=== PATIENT | female | born 1950 | race Caucasian/White ===

== ENCOUNTER → 2017-10-10 | Outpatient (CLI) | payer MEDICARE ==
[~2017-10-10] MED LIST: SULF1TAB38 PO
--- NOTE | 2017-10-10 19:54 | Diagnostic Imaging Report ---
INDICATION: Fall with left foot pain. AP, oblique, and lateral views of the left foot are obtained. There is some plantar calcaneal spurring. There is a lucency in the medial sesamoid adjacent to the first metatarsal, which may be developmental although fracture cannot be excluded. Correlate for point tenderness in this area. There is no other bony abnormality seen. IMPRESSION: Lucencies through the medial sesamoid bone adjacent to the first metatarsal, it is not clear this is developmental or a nondisplaced fracture. Correlate for point tenderness in this area. There is no acute abnormality otherwise seen. Dictated by: Dictated on workstation # [id number]
--- NOTE | 2017-10-10 19:54 | Diagnostic Imaging Report ---
INDICATION: Toe pain. AP, oblique, and lateral views of the toes are obtained. FINDINGS: There is no definite acute fracture. There is a calcification adjacent to the first interphalangeal joint which appears chronic. There is calcification adjacent to the first metatarsal head which appears chronic. There is a lucency in the medial sesamoid bone adjacent to the first metatarsal, which may be developmental although a nondisplaced fracture not excluded. IMPRESSION: Chronic finding as above. Questionable lucency in the medial sesamoid bone adjacent to the first metatarsal, this may be developmental or nondisplaced fracture, correlate for point tenderness in this area. Dictated by: Dictated on workstation # [id number]
== END ==
LOC: RAD 18:52
PROVIDERS: ATTEND Nurse Practitioner Family
DX: M25.872 Other specified joint disorders, left ankle and foot (principal); W19.XXXA Unspecified fall, initial encounter
CPT/HCPCS: 73630; 73660

== ENCOUNTER 2017-11-18 05:38 | Outpatient (CLI) | payer MEDICARE ==
[~2017-11-18] VITALS: Ht 165.1 cm; Wt 113.4 kg
[2017-11-18] MEDS ORDERED: SERT20OR PO (09:37)
[2017-11-18] MEDS ORDERED: ALPR0.254 PO (09:37)
[2017-11-18] MEDS ORDERED: LEVO150T6 PO (09:37)
== END 2017-11-18 09:44 ==
LOC: PREOP 05:38
PROVIDERS: ATTEND Surgery
DX: Z01.818 Encounter for other preprocedural examination (principal); K21.9 Gastro-esophageal reflux disease without esophagitis; Z86.010 Personal history of colon polyps

== ENCOUNTER 2017-11-24 09:13 | Day surgery (SDC) | payer MEDICARE ==
[~2017-11-24] VITALS: Ht 165.1 cm; Wt 113.4 kg
[~2017-11-24 09:13] MED LIST changes: +ALPR0.254 PO; +LEVO150T6 PO; +SERT100T PO
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
[2017-11-24] MEDS ORDERED: NS IV 500 ML 500 ML IV PRN (09:18)
[2017-11-24] MEDS ORDERED: HURRICAINE EXT TUBE (BENZOCAINE) XX PRN (09:30)
[2017-11-24 09:38] VITALS: BP 140/83
[2017-11-24] MEDS ORDERED: MIDAZOLAM 2 MG/2 ML (VERSED) VIAL ONE ×4 (10:34→10:35)
[2017-11-24] MEDS ORDERED: fentaNYL INJECTION 100 MCG/2 ML AMP ONE (10:35)
[2017-11-24] MEDS ORDERED: HURRICAINE EXT TUBE (BENZOCAINE) ONE (10:35)
[2017-11-24] MEDS: MIDAZOLAM 2 MG/2 ML (VERSED) VIAL IVP PRN ×2 (10:57→11:06)
[2017-11-24] MEDS: fentaNYL INJECTION 100 MCG/2 ML AMP IVP PRN ×2 (10:58→11:08)
--- NOTE | 2017-11-24 11:20 | Endo Procedure Record ---
Endo Procedure Report Date of Procedure Last Colonoscopy: Yes (UNSURE OF DATE) Nov 24, 2017 Surgeon (s) TRACEY OROPEZA MD Post Procedure/Op Diagnosis EGD: Esophageal stricture with activity esophagitis. Antral and duodenal erosion Colonoscopy: Very few sigmoid diverticula Procedure Performed EGD with antral biopsy for H. pylori Balloon dilatation of esophageal stricture Colonoscopy to cecum Description of Procedure Anesthesia Type: Conscious Sedation Specimen(s) collected/removed antral mucosa for H. pylori Description of the Procedure Indication for the procedures: This lady came in for an upper endoscopy to evaluate ongoing symptoms of reflux with dysphagia and concomitant colonoscopy. She reported a personal history of polyps in the past. Informed consent was obtained after reviewing the procedures in detail. Description of the procedures: EGD/antral biopsy/balloon dilatation: she was placed in left lateral decubitus position and her vital signs were monitored. Conscious sedation was achieved using Versed and fentanyl. The flexible gastroscope was then introduced down the esophagus, past the stomach, into the proximal duodenum. Findings Esophagus: A smooth, concentric stricture at the distal end with evidence of active esophagitis. The stricture was dilated to 20 mm using a balloon. Stomach: Multiple shallow erosions at the antrum. Biopsy for H. pylori was obtained. Duodenum: Changes of duodenitis along the first part. She tolerated the procedure well and was turned around in preparation for colonoscopy. Impression: Changes of esophagitis with stricture. Antral and duodenal erosions. Balloon dilatation completed. Helicobacter status pending. Colonoscopy: Digital rectal examination was unremarkable. The colonoscope was then introduced into the rectum and advanced all the way up to the cecum The quality of bowel preparation was excellent. The scope was then withdrawn slowly and the mucosa examined in a systematic fashion. Findings: Very few, scattered sigmoid diverticula. No recurrent polyps were found She tolerated the procedures well and was taken back to the nursing area in a stable condition. Impression: Previous history of polyps. No recurrence. Recommend repeating in 5 years. Copies To: CAROLEE SAXENA MD,TRACEY Tovar MD Nov 24, 2017 11:20 am
--- NOTE | 2017-11-24 11:22 | History & Physicial ---
History of Present Illness History of Present Illness Reason for visit/HPI to undergo an upper endoscopy regarding symptoms of reflux disease and dysphagia with concomitant surveillance colonoscopy. Date of Admission 11/24/17 Date Seen by Provider: Nov 24, 2017 Time Seen by Provider: 09:55 I consulted on this patient on 11/24/17 11:20 Attending Physician Tracey Harris MD Admitting Physician Yuly Fuller MD Consult Allergies and Home Medications Allergies Coded Allergies: No Known Drug Allergies (Unverified , 11/18/17) Home Medications Alprazolam 0.25 Mg Tablet, 0.5 MG PO HS, (Reported) Levothyroxine Sodium 150 Mcg Tablet, 150 MCG PO DAILY, (Reported) Sertraline HCl 100 Mg Tablet, 100 MG PO DAILY, (Reported) Past [facility] Hx Patient Social History Marrital Status: Employed/Student: employed Alcohol Use: Occasionally Uses Number of Drinks Today: 0 Recreational Drug Use: No Smoking Status: Former Smoker Former Smoker, Quit: Nov 18, 1971 Recent Foreign Travel: No Contact w/other who traveled: No Recent Hopitalizations: No Recent Infectious Disease Expo: No Immunizations Up To Date Date of Influenza Vaccine: Jun 30, 2014 Seasonal Allergies Seasonal Allergies: No Respiratory Currently Using CPAP: Yes Reproductive System Hx Reproductive Disorders: No Sexually Transmitted Disease: No HIV/AIDS: No Gastrointestinal Gastroesophageal Reflux, Hepatitis, Polyps HEENT Loss of Vision: Bilateral Hearing Impairment: Denies Psychosocial Behavioral Health Disorders: Anxiety Blood Transfusions Adverse Reaction to a Blood Tr: No (N/A) Constitutional: no symptoms reported EENTM: no symptoms reported Respiratory: no symptoms reported Cardiovascular: no symptoms reported Gastrointestinal: see HPI Genitourinary: no symptoms reported Musculoskeletal: no symptoms reported Skin: no symptoms reported Psychiatric/Neurological: No Symptoms Reported Physical Exam Vital Signs Vital Signs - First Documented 11/24/17 09:38 Temp 98.2 Pulse 61 Resp 16 B/P (MAP) 140/83 (102) Pulse Ox 93 O2 Delivery Room Air Capillary Refill : General Appearance: No Apparent Distress Neck: Normal Inspection Respiratory: Lungs Clear Cardiovascular: Regular Rate, Rhythm Gastrointestinal: Non Tender, Soft Rectal: Deferred Back: Normal Inspection Extremity: Normal Inspection Neurologic/Psychiatric: Alert, Oriented x3 Skin: Warm/Dry Assessment/Plan Assessment and Plan lady with symptoms of reflux disease and dysphagia possibly due to stricture. History of polyps. For upper endoscopy with concomitant colonoscopy. Problems: TRACEY HARRIS MD Nov 24, 2017 11:22 am
--- NOTE | 2017-11-24 11:22 | Conscious Sedation/ASA ---
Conscious Sedation Pre-Proced Time Reviewed: 10:05 ASA Class: 2 Airway Mallampati Classification: (inupiat appropriate class) I. II. III, IV Lungs Heart ASA score ASA 1: a normal healthy patient ASA 2: a patient with a mild systemic disease (mid diabetes, controlled hypertension, obesity ASA 3: a patient with a severe systemic disease that limits activity (angina , COPD, prior Myocardial infarction) ASA 4: a patient with an incapacitating disease that is a constant threat to life (CHF, renal failure) ASA 5: a moribund patient not expected to survive 24 hrs. (ruptured aneurysm) ASA 6: a declared brain patient whose organs are being harvested. For emergent operations, add the letter E after the classification Grade 1 Sedation Plan: Discussed options with patient/fam Note The patient is an appropriate candidate to undergo the planned procedure, sedation, and anesthesia. The patient immediately re-assessed prior to indication. TRACEY OROPEZA MD Nov 24, 2017 11:22 am
[2017-11-24] MEDS ORDERED: PANT40TA2 PO (11:23)
--- NOTE | 2017-11-24 11:24 | Discharge Inst-Simple/Standard ---
Discharge Inst-Standard Discharge Medications New, Converted or Re-Newed RX: RX on Chart Patient Instructions/Follow Up Plan of Care/Instructions/FU: Follow-up with her primary. Repeat colonoscopy in 5 years Activity as Tolerated: Yes Discharge Diet: No Restrictions TRACEY OROPEZA MD Nov 24, 2017 11:24 am
[2017-11-24 11:30] VITALS: BP 126/76
[2017-11-24 12:00] VITALS: BP 144/89
[2017-11-24 12:55] VITALS: BP 144/89
== END 2017-11-24 12:55 | disposition home or self-care (01) ==
LOC: ENDO 09:13
PROVIDERS: ATTEND Surgery
DX: K22.2 Esophageal obstruction (principal); K57.30 Diverticulosis of large intestine without perforation or abscess without bleeding; K25.9 Gastric ulcer, unspecified as acute or chronic, without hemorrhage or perforation; K26.9 Duodenal ulcer, unspecified as acute or chronic, without hemorrhage or perforation; Z86.010 Personal history of colon polyps; Z87.891 Personal history of nicotine dependence; F41.9 Anxiety disorder, unspecified

== ENCOUNTER 2018-07-21 12:52 | Outpatient (CLI) | payer MEDICARE ==
[~2018-07-21] VITALS: Ht 165.1 cm; Wt 113.4 kg
[~2018-07-21 12:52] MED LIST changes: +ATOR20TA66 PO; +PANT40TA2 PO; +PANT40TA3 PO; +UBID100C7 PO
== END 2018-07-21 13:02 | disposition home or self-care (01) ==
LOC: PREOP 12:52
PROVIDERS: ATTEND Surgery
DX: Z01.818 Encounter for other preprocedural examination (principal)

== ENCOUNTER 2018-07-27 07:02 | Day surgery (SDC) | payer MEDICARE ==
[~2018-07-27] VITALS: Ht 165.1 cm; Wt 113.4 kg
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
[2018-07-27] MEDS ORDERED: NS IV 500 ML 500 ML ONE (07:16)
[2018-07-27] MEDS ORDERED: NS IV 500 ML 500 ML IV PRN (07:35)
[2018-07-27 07:38] VITALS: BP 139/75
[2018-07-27] MEDS ORDERED: fentaNYL INJECTION 100 MCG/2 ML AMP IVP ONE (07:45)
[2018-07-27] MEDS ORDERED: HURRICAINE EXT TUBE (BENZOCAINE) XX PRN (07:45)
[2018-07-27] MEDS ORDERED: MIDAZOLAM 2 MG/2 ML (VERSED) VIAL IVP ONE (07:45)
[2018-07-27] MEDS ORDERED: fentaNYL INJECTION 100 MCG/2 ML AMP ONE (08:31)
[2018-07-27] MEDS ORDERED: HURRICAINE EXT TUBE (BENZOCAINE) ONE (08:32)
[2018-07-27] MEDS ORDERED: MIDAZOLAM 2 MG/2 ML (VERSED) VIAL ONE ×4 (08:32)
--- NOTE | 2018-07-27 08:42 | History & Physicial ---
History of Present Illness History of Present Illness Reason for visit/HPI to undergo follow-up upper endoscopy regarding previously found esophageal stricture Date of Admission 07/27/18 Date Seen by a Provider: Jul 27, 2018 Time Seen by a Provider: 08:41 I consulted on this patient on 07/27/18 08:41 Attending Physician Tracey Harris MD Admitting Physician Yuly Fuller MD Consult Allergies and Home Medications Allergies Coded Allergies: No Known Drug Allergies (Unverified , 11/18/17) Home Medications Alprazolam 0.25 Mg Tablet, 0.5 MG PO HS, (Reported) Atorvastatin Calcium 20 Mg Tablet, 20 MG PO HS, (Reported) Levothyroxine Sodium 150 Mcg Tablet, 150 MCG PO DAILY, (Reported) Pantoprazole Sodium 40 Mg Tablet.dr, 40 MG PO DAILY, (Reported) Sertraline HCl 100 Mg Tablet, 100 MG PO DAILY, (Reported) Ubidecarenone 100 Mg Capsule, 100 MG PO DAILY, (Reported) Patient Home Medication List Home Medication List Reviewed: Yes Past Cudnpkq-Fpcfhn-Kvhvyw Hx Patient Social History Marrital Status: Employed/Student: retired Alcohol Use: Denies Use Recreational Drug Use: No Smoking Status: Never a Smoker Former Smoker, Quit: Nov 18, 1971 Recent Foreign Travel: No Contact w/other who traveled: No Recent Hopitalizations: No Immunizations Up To Date Date of Influenza Vaccine: Jun 30, 2014 Seasonal Allergies Seasonal Allergies: No Respiratory Currently Using CPAP: Yes Cardiovascular Yes High Cholesterol Reproductive System Hx Reproductive Disorders: No Sexually Transmitted Disease: No HIV/AIDS: No Gastrointestinal Yes Gastroesophageal Reflux, Hepatitis, Polyps HEENT Loss of Vision: Bilateral Hearing Impairment: Denies Psychosocial History of Psychiatric Problem: Yes Behavioral Health Disorders: Anxiety Blood Transfusions Adverse Reaction to a Blood Tr: No (N/A) Review of Systems Constitutional: no symptoms reported EENTM: no symptoms reported Respiratory: no symptoms reported Cardiovascular: no symptoms reported Gastrointestinal: no symptoms reported Genitourinary: no symptoms reported Skin: no symptoms reported Psychiatric/Neurological: No Symptoms Reported Physical Exam Vital Signs Vital Signs - First Documented 07/27/18 07:38 Temp 97.8 Pulse 58 Resp 18 B/P (MAP) 139/75 (96) Pulse Ox 95 O2 Delivery Room Air Capillary Refill : Height, Weight, BMI Height: 5'5.00" Weight: 250lbs. 0.0oz. 113.707658ha; 41.6 BMI Method:Stated General Appearance: No Apparent Distress Neck: Normal Inspection Respiratory: Lungs Clear Cardiovascular: Regular Rate, Rhythm Gastrointestinal: Non Tender, Soft Extremity: Normal Inspection Neurologic/Psychiatric: Oriented x3 Skin: Warm/Dry Assessment/Plan Assessment and Plan lady with previous esophageal stricture. Currently symptomatic. For follow-up upper endoscopy. Admission Diagnosis Admission Status: Other (Outpt Proc) TRACEY HARRIS MD Jul 27, 2018 08:42
--- NOTE | 2018-07-27 08:43 | Conscious Sedation/ASA ---
Conscious Sedation Pre-Proced Time 08:43 ASA Score 2 For ASA 3 and 4: Consider anesthesia and medical clearance. Also, for patients with a history of failed moderate sedation consider anesthesia. Airway Lungs Heart ASA score ASA 1: a normal healthy patient ASA 2: a patient with a mild systemic disease (mid diabetes, controlled hypertension, obesity ASA 3: a patient with a severe systemic disease that limits activity (angina , COPD, prior Myocardial infarction) ASA 4: a patient with an incapacitating disease that is a constant threat to life (CHF, renal failure) ASA 5: a moribund patient not expected to survive 24 hrs. (ruptured aneurysm) ASA 6: a declared brain patient whose organs are being harvested. For emergent operations, add the letter E after the classification Mallampati Classification Grade 1 Sedation Plan Discussed options with patient/fam The patient is an appropriate candidate to undergo the planned procedure, sedation, and anesthesia. The patient immediately re-assessed prior to indication. TRACEY OROPEZA MD Jul 27, 2018 08:43
--- NOTE | 2018-07-27 08:54 | Endo Procedure Record ---
Endo Procedure Report Date of Procedure Last Colonoscopy: Yes (10/2017) Jul 27, 2018 Surgeon (s) TRACEY OROPEZA MD Post Procedure/Op Diagnosis hiatal hernia with esophagitis. No stricture Distal gastritis Procedure Performed EGD with antral biopsy for H. pylori Description of Procedure Anesthesia Type: Conscious Sedation Specimen(s) collected/removed antral mucosa for H. pylori Description of the Procedure indication for procedure: This lady came in for a follow-up upper endoscopy regarding previously found esophageal stricture with gastric erosions. The former required endoscopic balloon dilatation with resolution of her symptoms. Informed consent was obtained after reviewing the procedure in detail. Description of procedure: She was placed in left lateral decubitus position and her vital signs were monitored. Conscious sedation was achieved using Versed and fentanyl. The flexible gastroscope was introduced down the esophagus, past the stomach, into the proximal duodenum. Findings: Esophagus: Hiatal hernia with evidence of much improved esophagitis, probably grade 1. The stricture itself had responded to dilatation.. Stomach: Mild distal gastritis with a very small erosion. Biopsy for H. pylori was. Duodenum: Normal She tolerated the procedure well and was taken back to the nursing area in a stable condition. Impression: Previous esophageal stricture. Resolved. Mild distal gastritis. 2 continue proton pump inhibitor therapy Copy Copies To 1: CAROLEE SAXENA MD, XAVIER M MD Jul 27, 2018 08:54
--- NOTE | 2018-07-27 08:56 | Discharge Inst-Simple/Standard ---
Discharge Inst-Standard Discharge Medications New, Converted or Re-Newed RX: Other Patient Instructions/Follow Up Plan of Care/Instructions/FU: follow-up when necessary Activity as Tolerated: Yes Discharge Diet: No Restrictions TRACEY OROPEZA MD Jul 27, 2018 08:56
[2018-07-27 09:15] VITALS: BP 133/79
[2018-07-27 09:40] VITALS: BP 135/80
[2018-07-27 10:54] VITALS: BP 135/80
== END 2018-07-27 10:15 | disposition home or self-care (01) ==
LOC: ENDO 07:02
PROVIDERS: ATTEND Surgery
DX: Z09 Encounter for follow-up examination after completed treatment for conditions other than malignant neoplasm (principal); K21.0 Gastro-esophageal reflux disease with esophagitis; K29.50 Unspecified chronic gastritis without bleeding; K44.9 Diaphragmatic hernia without obstruction or gangrene; E78.00 Pure hypercholesterolemia, unspecified; Z87.891 Personal history of nicotine dependence; Z79.899 Other long term (current) drug therapy; Z86.010 Personal history of colon polyps
CPT/HCPCS: 88305; 88342

== ENCOUNTER → 2019-10-15 | Outpatient (CLI) | payer MEDICARE ==
--- NOTE | 2019-10-15 12:16 | Diagnostic Imaging Report ---
INDICATION: Routine screening. Comparison is made with prior mammogram 07/04/2014 and 02/15/2013. 2-D and 3-D bilateral screening mammography was performed with CAD. Both breasts are heterogeneously dense, limiting the sensitivity of mammography. Intraparenchymal lymph node in the outer left breast appears stable. There are benign calcifications. No mass or malignant appearing microcalcifications are seen. Axillae are unremarkable. IMPRESSION: BI-RADS Category 2 No mammographic features suspicious for malignancy are identified. ACR BI-RADS Category 2: Benign findings. Result letter will be mailed to the patient. Note: At least 10% of breast cancer is not imaged by mammography. Dictated by: Dictated on workstation # [id number]
== END ==
LOC: RAD 10:52
PROVIDERS: ATTEND Family Medicine
DX: Z12.31 Encounter for screening mammogram for malignant neoplasm of breast (principal)
CPT/HCPCS: 77067

== ENCOUNTER → 2020-06-13 | Outpatient (CLI) | payer MEDICARE ==
[~2020-06-13] VITALS: Ht 167 cm; Wt 117.0 kg
[~2020-06-13] MED LIST changes: +CATHETER FLUSH 10 ML SYR IV PRN; -PANT40TA3 PO; +PANT40TA52 PO; +REGADENOSON 0.4 MG/5 ML SYR (LEXISCAN) IV ONE
[2020-06-13 13:27] VITALS: BP 158/85
--- NOTE | 2020-06-15 22:43 | STRESS TEST ---
DATE OF SERVICE: 06/13/2020 RESTING AND POST REGADENOSON TECHNETIUM-99M TETROFOSMIN SPECT CT IMAGING Baseline images were carried out after injection of 10.26 mCi of technetium-99m Tetrofosmin. This was followed by 0.4 mg regadenoson and 30.5 mCi of technetium-99m Tetrofosmin for stress imaging. The electrocardiogram showed sinus rhythm with occasional premature atrial contraction. The electrocardiogram did not change significantly with regadenoson infusion. The patient tolerated the procedure well. Review of images at rest and following stress does not indicate any distinct perfusion defects consistent with significant myocardial ischemia or infarction. Gated images show normal global left ventricular systolic function with normal regional wall motion. Left ventricular ejection fraction is calculated to be 75%. Left ventricular end diastolic volume is 59 mL. TID is absent (1.03). CONCLUSIONS: 1. No evidence of any significant myocardial ischemia or infarction on this study. 2. Normal regional wall motion. 3. Normal global left ventricular systolic function with a calculated ejection fraction of 75%. Job ID: [id number] DocumentID: [id number] Dictated Date: 06/15/2020 15:09:34 Guest Service Agent Date: 06/15/2020 22:42:16 Dictated By: SHELDON ADAMS MD, MA, FACP, FACC,
== END ==
LOC: CARD 11:39
PROVIDERS: ATTEND Internal Medicine Cardiovascular Disease
DX: G47.33 Obstructive sleep apnea (adult) (pediatric) (principal); I10 Essential (primary) hypertension; E11.9 Type 2 diabetes mellitus without complications; E66.9 Obesity, unspecified; R79.89 Other specified abnormal findings of blood chemistry
CPT/HCPCS: 78452; 83880; 93017; 93306; A9502; 36415

== ENCOUNTER → 2020-06-19 | Outpatient (CLI) | payer MEDICARE ==
[~2020-06-19] MED LIST changes: -CATHETER FLUSH 10 ML SYR IV PRN; -REGADENOSON 0.4 MG/5 ML SYR (LEXISCAN) IV ONE
== END ==
LOC: LABNPT 08:10
PROVIDERS: ATTEND Emergency Medicine
DX: Z01.812 Encounter for preprocedural laboratory examination (principal); Z20.828 Contact with and (suspected) exposure to other viral communicable diseases
CPT/HCPCS: 87635

== ENCOUNTER → 2020-09-04 | Outpatient (CLI) | payer MEDICARE ==
[~2020-09-04] MED LIST changes: +ALPR.25T PO; -ALPR0.254 PO
--- NOTE | 2020-09-04 13:25 | Diagnostic Imaging Report ---
EXAMINATION: Magnetic resonance imaging of the right knee without intravenous contrast. DATE: September 04, 2020. COMPARISON: None. INDICATION: 70-year-old female, right knee pain for 6 weeks. No known injury. TECHNIQUE: Multiplanar, multisequence non contrast enhanced MR imaging was accomplished. FINDINGS: MENISCI: There is signal in the medial meniscus not meeting strict MRI criteria for a definite diagnosis of tear. There is a longitudinal horizontal type tear involving the anterior horn, body, and posterior horn of the lateral meniscus. LIGAMENTS AND TENDONS: The anterior and posterior cruciate ligaments are intact. The medial collateral ligament is intact. The iliotibial band, mid third lateral capsular ligament, fibular collateral ligament, biceps femoris tendon and conjoined tendon are intact. The quadriceps tendon and patella ligament are intact. JOINT: There are subchondral cystic changes in the posterior aspect of the medial femoral condyle without clearly identified overlying cartilage defect. There is also degenerative related marrow edema underlying the median patellar ridge without clearly identified cartilage defect. The lateral compartment cartilage is grossly intact. There is a medial plica which is not particularly thick. There is a trace knee joint effusion. There is no identified intra-articular body or prominent synovitis. BONE: There is no acute fracture, bone contusion, or evidence of osteonecrosis. BURSAE AND SOFT TISSUES: There is minimal fluid in the popliteal fossa without sizable Fulton's cyst. There is nonspecific predominantly anterior and lateral subcutaneous edema. There is also abnormal edema within the fat deep to the iliotibial band. IMPRESSION: 1. Longitudinal horizontal type tear involving the anterior horn, body, and posterior horn of the lateral meniscus. 2. Grossly intact medial meniscus. 3. Intact anterior and posterior cruciate ligaments. Additional ligaments and tendons are intact. 4. 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 Trace knee joint effusion. No prominent synovitis or identified intra-articular body. 5. No acute fracture or bone contusion. 6. Nonspecific subcutaneous edema, predominantly anteriorly and laterally located as well as deep to the iliotibial band. No focal fluid collection. Dictated by: Dictated on workstation # [id number]
== END ==
LOC: RAD 11:42
PROVIDERS: ATTEND Family Medicine
DX: M23.241 Derangement of anterior horn of lateral meniscus due to old tear or injury, right knee (principal); M23.251 Derangement of posterior horn of lateral meniscus due to old tear or injury, right knee; M17.11 Unilateral primary osteoarthritis, right knee
CPT/HCPCS: 73721

== ENCOUNTER → 2021-04-17 | Outpatient (CLI) | payer MEDICARE ==
--- NOTE | 2021-04-17 16:13 | Diagnostic Imaging Report ---
Indication: Chest congestion Findings: The lungs are clear. The heart mildly enlarged but no vascular congestion. No effusion or pneumothorax. No evidence for pneumonia. Impression: A mild prominence of the heart but no failure pattern, pneumonia or pleural pathology. Dictated by: Dictated on workstation # [id number]
== END ==
LOC: RAD 14:55
DX: R09.89 Other specified symptoms and signs involving the circulatory and respiratory systems (principal)
CPT/HCPCS: 71046

== ENCOUNTER → 2021-08-13 | Outpatient (CLI) | payer MEDICARE | LOC: CARD 08:16 | PROVIDERS: ATTEND Internal Medicine Cardiovascular Disease | DX: R00.2 Palpitations (principal) | CPT/HCPCS: 93225; 93226 ==

== ENCOUNTER 2021-09-18 15:28 | Observation (INO) | payer MEDICARE ==
[~2021-09-18] VITALS: Ht 137 cm; Wt 113.0 kg
[2021-09-18 16:14] LABS: BASOPHILS # (AUTO) 0.1 10^3/uL (0.0-0.1); BASOPHILS % (AUTO) 1 % (0-10); EOSINOPHILS # (AUTO) 0.2 10^3/uL (0.0-0.3); EOSINOPHILS % (AUTO) 2 % (0-10); HEMATOCRIT 40 % (35-52); HEMOGLOBIN 12.7 g/dL (11.5-16.0); LYMPHOCYTES # (AUTO) 2.3 10^3/uL (1.0-4.0); LYMPHOCYTES % (AUTO) 36 % (12-44); MEAN CORPUSCULAR HEMOGLOBIN 29 pg (25-34); MEAN CORPUSCULAR HGB CONC 32 g/dL (32-36); MEAN CORPUSCULAR VOLUME 91 fL (80-99); MEAN PLATELET VOLUME 9.7 fL (9.0-12.2); MONOCYTES # (AUTO) 0.6 10^3/uL (0.0-1.0); MONOCYTES % (AUTO) 9 % (0-12); NEUTROPHILS # (AUTO) 3.2 10^3/uL (1.8-7.8); NEUTROPHILS % (AUTO) 51 % (42-75); PLATELET COUNT 288 10^3/uL (130-400); WHITE BLOOD COUNT 6.3 10^3/uL (4.3-11.0)
[2021-09-18 16:24] LABS: ALBUMIN 3.9 GM/DL (3.2-4.5); POTASSIUM 3.6 MMOL/L (3.6-5.0)
[2021-09-18 16:25] LABS: CALCIUM 8.5 MG/DL (8.5-10.1)
[2021-09-18 16:27] LABS: PROTHROMBIN TIME PATIENT 13.1 SEC (12.2-14.7); TOTAL PROTEIN 7.2 GM/DL (6.4-8.2)
[2021-09-18 16:28] LABS: BILIRUBIN,TOTAL 0.5 MG/DL (0.1-1.0)
[2021-09-18 16:30] LABS: CREATININE SERUM 0.86 MG/DL (0.60-1.30)
[2021-09-18] MEDS ORDERED: dilTIAZem DRIP PRE-MIX 125 ML IV SCH (16:30)
--- NOTE | 2021-09-18 16:56 | Diagnostic Imaging Report ---
EXAMINATION: Chest, one view. HISTORY: Chest pain. COMPARISON: 04/17/2021. FINDINGS: Heart size is mildly enlarged. Pulmonary vasculature is normal. There are mild interstitial opacities within the mid and lower lungs. No pleural effusion or pneumothorax. The osseous structures are intact. IMPRESSION: 1. Cardiomegaly with mild bibasilar interstitial opacities. This could be seen with pulmonary edema or atypical infection. Dictated by: Dictated on workstation # [id number]
[2021-09-18 17:04] LABS: TSH (THYROID ANALYZER) 0.88 UIU/ML (0.35-4.94)
[2021-09-18] MEDS ORDERED: APIXABAN 5 MG (ELIQUIS) TABLET PO STA (17:31)
--- NOTE | 2021-09-18 17:34 | ED Cardiac General ---
History of Present Illness General Chief Complaint: Cardiac/General Problems Stated Complaint: LOW BLOOD PRESSURE, WEAKNESS, DIZZINESS Nursing Triage Note: AMB TO C/O BEING DIZZY AND WEAK FOR 1 WEEK. ON ADMIT MONITOR SHOWS A FIB WITH RVR WITH RATE OF 150'S PATIENT DENIES HX OF A FIB. Source: patient, old records Exam Limitations: no limitations History of Present Illness Date Seen by Provider: Sep 18, 2021 Time Seen by Provider: 15:37 Initial Comments This is 71-year-old woman presents to the emergency room with complaints of some intermittent shortness of breath, fatigue, and an episode of chest pain last week. She was seen as a walk-in to Dr. Fuller's clinic. She was noted to have abnormal vital signs and was referred to the ER. On the monitor she is noted to have atrial fibrillation with RVR. This is new for her. She has had cardiac work-up in the past including Holter monitor, echocardiogram, and stress test last year by Dr. Crowe. These studies were largely unremarkable. She has never had any documented arrhythmias other than PVCs or PACs. She is afebrile. She denies any cough or other symptoms of infectious illness. She does comment that on some life insurance blood work performed last summer and again this fall her BNP was elevated in the 3000s and 300s respectively. 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 INSPECTOR: No Allergies and Home Medications Allergies Coded Allergies: No Known Drug Allergies (Unverified , 11/18/17) Patient Home Medication List Home Medication List Reviewed: Yes ALPRAZolam (Xanax Tablet) 0.25 Mg Tablet, 0.5 MG PO HS, (Reported) Entered as Reported by: BERTO ESCALERA on 11/18/17936 Atorvastatin Calcium (Atorvastatin Calcium) 20 Mg Tablet, 20 MG PO HS, (Reported) Entered as Reported by: DEANA STINSON on 07/21/18 124 Levothyroxine Sodium (Levothyroxine Sodium) 150 Mcg Tablet, 150 MCG PO DAILY, (Reported) Entered as Reported by: BERTO ESCALERA on 11/18/17936 Pantoprazole Sodium (Pantoprazole Sodium) 40 Mg Tablet.dr, 40 MG PO DAILY, (Reported) Entered as Reported by: DEANA STINSON on 07/21/18 124 Sertraline HCl (Zoloft) 100 Mg Tablet, 100 MG PO DAILY, (Reported) Entered as Reported by: BERTO ESCALERA on 11/18/17 0937 Ubidecarenone (Co Q10) 100 Mg Capsule, 100 MG PO DAILY, (Reported) Entered as Reported by: DEANA STINSON on 07/21/18 1247 Review of Systems Review of Systems Constitutional: see HPI EENTM: No Symptoms Reported Respiratory: See HPI Cardiovascular: See HPI Gastrointestinal: No Symptoms Reported Genitourinary: No Symptoms Reported Musculoskeletal: no symptoms reported Skin: no symptoms reported Psychiatric/Neurological: No Symptoms Reported Endocrine: No Symptoms Reported Hematologic/Lymphatic: No Symptoms Reported Past Mrfisoa-Wflxgw-Ozsybh Hx Patient Social History Tobacco Use?: No Substance use?: No Alcohol Use?: Yes Alcohol Frequency: Rarely Pt feels they are or have been: No Immunizations Up To Date First/Initial COVID19 Vaccinat: Oct COVID19 Vaccination Rohan: NOVEMBER COVID Vaccine 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: [facility] Seasonal Allergies Seasonal Allergies: No Past Medical History Surgeries: Yes Abdominal (EGD with dilation of esophageal stricture) Respiratory: Yes Sleep Apnea Currently Using CPAP: Yes Cardiac: Yes High Cholesterol Neurological: No Reproductive Disorders: No Sexually Transmitted Disease: No HIV/AIDS: No Gastrointestinal: Yes (Esophageal stricture) Gastroesophageal Reflux, Diverticulosis, Hepatitis, Polyps Musculoskeletal: No Endocrine: Yes Hypothyroidsim HEENT: No Loss of Vision: Bilateral Hearing Impairment: Denies Cancer: No Psychosocial: No Anxiety Adverse Reaction/Blood Tranf: No (N/A) Physical Exam Vital Signs Vital Signs - First Documented 09/18/21 15:48 Pulse 127 Resp 18 B/P (MAP) 125/96 (106) Pulse Ox 96 O2 Delivery Room Air Capillary Refill : Less Than 3 Seconds Height, Weight, BMI Height: 5'5.00" Weight: 250lbs. 0.0oz. 113.198097nf; 60.00 BMI Method:Stated General Appearance: No Apparent Distress, WD/WN, Obese HEENT: PERRL/EOMI, Normal ENT Inspection Neck: Normal Inspection Respiratory: Lungs Clear, Normal Breath Sounds, No Accessory Muscle Use Cardiovascular: No Edema, No Murmur, Irregularly Irregular, Tachycardia Gastrointestinal: Normal Bowel Sounds, Non Tender, Soft Extremity: Normal Inspection, Non Tender, No Pedal Edema Neurologic/Psychiatric: Alert, Oriented x3, No Motor/Sensory Deficits, Normal Mood/Affect Skin: Normal Color, Warm/Dry Progress/Results/Core Measures Results/Orders Lab Results Laboratory Tests Test 09/18/21 15:39 09/18/21 15:57 Range/Units Influenza Type A (RT-PCR) Not Detected Not Detecte Influenza Type B (RT-PCR) Not Detected Not Detecte SARS-CoV-2 RNA (RT-PCR) Not Detected Not Detecte White Blood Count 6.3 4.3-11.0 10^3/uL Red Blood Count 4.38 3.80-5.11 10^6/uL Hemoglobin 12.7 11.5-16.0 g/dL Hematocrit 40 35-52 % Mean Corpuscular Volume 91 80-99 fL Mean Corpuscular Hemoglobin 29 25-34 pg Mean Corpuscular Hemoglobin Concent 32 32-36 g/dL Red Cell Distribution Width 14.2 10.0-14.5 % Platelet Count 288 130-400 10^3/uL Mean Platelet Volume 9.7 9.0-12.2 fL Immature Granulocyte % (Auto) 0 % Neutrophils (%) (Auto) 51 42-75 % Lymphocytes (%) (Auto) 36 12-44 % Monocytes (%) (Auto) 9 0-12 % Eosinophils (%) (Auto) 2 0-10 % Basophils (%) (Auto) 1 0-10 % Neutrophils # (Auto) 3.2 1.8-7.8 10^3/uL Lymphocytes # (Auto) 2.3 1.0-4.0 10^3/uL Monocytes # (Auto) 0.6 0.0-1.0 10^3/uL Eosinophils # (Auto) 0.2 0.0-0.3 10^3/uL Basophils # (Auto) 0.1 0.0-0.1 10^3/uL Immature Granulocyte # (Auto) 0.0 0.0-0.1 10^3/uL Prothrombin Time 13.1 12.2-14.7 SEC INR Comment 1.0 0.8-1.4 Activated Partial Thromboplast Time 29 24-35 SEC Sodium Level 140 135-145 MMOL/L Potassium Level 3.6 3.6-5.0 MMOL/L Chloride Level 107 98-107 MMOL/L Carbon Dioxide Level 22 21-32 MMOL/L Anion Gap 11 5-14 MMOL/L Blood Urea Nitrogen 17 7-18 MG/DL Creatinine 0.86 0.60-1.30 MG/DL Estimat Glomerular Filtration Rate 65 BUN/Creatinine Ratio 20 Glucose Level 132 H 70-105 MG/DL Calcium Level 8.5 8.5-10.1 MG/DL Corrected Calcium 8.6 8.5-10.1 MG/DL Magnesium Level 1.9 1.6-2.4 MG/DL Total Bilirubin 0.5 0.1-1.0 MG/DL Aspartate Amino Transf (AST/SGOT) 19 5-34 U/L Alanine Aminotransferase (ALT/SGPT) 15 0-55 U/L Alkaline Phosphatase 59 40-136 U/L Troponin I < 0.028 <0.028 NG/ML C-Reactive Protein High Sensitivity 0.32 0.00-0.50 MG/DL B-Type Natriuretic Peptide 237.5 H <100.0 PG/ML Total Protein 7.2 6.4-8.2 GM/DL Albumin 3.9 3.2-4.5 GM/DL TSH [place] Testing 0.88 0.35-4.94 UIU/ML My Orders Orders - CARLOS RANKIN MD Cbc With Automated Diff (09/18/21 15:37) Comprehensive Metabolic Panel (09/18/21 15:37) Hs C Reactive Protein (09/18/21 15:37) Ua Culture If Indicated (09/18/21 15:37) Ed Iv/Invasive Line Start (09/18/21 15:37) Ekg Tracing (09/18/21 15:37) Monitor-Rhythm Ecg Trace Only (09/18/21 15:37) Magnesium (09/18/21 15:49) Chest 1 View, Ap/Pa Only (09/18/21 15:49) Protime With Inr (09/18/21 15:49) Partial Thromboplastin Time (09/18/21 15:49) O2 (09/18/21 15:49) Lipid Panel (09/19/21 06:00) Thyroid Analyzer (09/18/21 15:49) Diltiazem Drip Pre-Mix (Cardizem Drip Pr (09/18/21 16:30) Diltiazem Injection (Cardizem Injection) (09/18/21 16:30) Troponin I [place] (09/18/21 16:28) Apixaban Tablet (Eliquis Tablet) (09/18/21 17:31) Medications Given in ED Current Medications Medications Dose Ordered Sig/Elsie Route Start Time Stop Time Status Last Admin Dose Admin Diltiazem HCl 10 mg ONCE ONCE IVP 09/18/21 16:30 09/18/21 16:31 DC 09/18/21 16:39 10 MG Vital Signs/I&O 09/18/21 15:48 Pulse 127 Resp 18 B/P (MAP) 125/96 (106) Pulse Ox 96 O2 Delivery Room Air Blood Pressure Mean: 106 Progress Progress Note : Progress Note Patient was started on a Cardizem bolus and drip. There was some improvement in heart rate. Eliquis was given for anticoagulation. Case was discussed with Dr. Fuller and Dr. Crowe. Initial ECG Impression Date: Sep 18, 2021 Initial ECG Impression Time: 15:40 Initial ECG Rate: 132 Initial ECG Rhythm: A Fib/Flutter Comment Atrial fibrillation with RVR. No ischemic ST elevation or depression. Repolarization abnormality noted. No axis deviation Diagnostic Imaging Diagonstic Imaging: Xray Plain Films/CT/US/NM/MRI: chest Comments NAME: REESE CRONIN [facility] REC#: [id number] PT STATUS: REG ER : 1950 PHYSICIAN: CARLOS RANKIN MD ADMIT DATE: 09/18/21/ER Signed Date of Exam:09/18/21 CHEST 1 VIEW, AP/PA ONLY EXAMINATION: Chest, one view. HISTORY: Chest pain. COMPARISON: 04/17/2021. FINDINGS: Heart size is mildly enlarged. Pulmonary vasculature is normal. There are mild interstitial opacities within the mid and lower lungs. No pleural effusion or pneumothorax. The osseous structures are intact. IMPRESSION: 1. Cardiomegaly with mild bibasilar interstitial opacities. This could be seen with pulmonary edema or atypical infection. Dictated by: Dictated on workstation # [id number] Dict: [id number] Trans: [id number]/18/[id number] Interpreted by: YUKO SPRAGUE DO Electronically signed by: YUKO SPRAGUE DO 09/18/214 Departure Communication (Admissions) Time/Spoke to Admitting Phy: 19:35 Dr. Fuller Time/Spoke to Consulting Phy: 17:25 Dr. Crowe Impression Primary Impression: Atrial fibrillation with RVR Disposition: ADMITTED INPATIENT Condition: Improved Admissions Decision to Admit Reason: Admit from ER (General) Decision to Admit/Date: Sep 18, 2021 Time/Decision to Admit Time: 17:20 Departure-Patient Inst. Referrals: CAROLEE FULLER MD (PCP/Family) Primary Care Physician CARLOS RANKIN MD Sep 18, 2021 17:33
[2021-09-18] MEDS: dilTIAZem DRIP PRE-MIX 125 ML IV SCH (18:29)
[2021-09-18] MEDS ORDERED: CATHETER FLUSH 10 ML SYR IV PRN (18:30)
[2021-09-18] MEDS ORDERED: ONDANSETRON 4 MG/2 ML (SDV) Z0FRAN IV PRN (18:30)
--- NOTE | 2021-09-18 19:44 | Consultation-Cardiology ---
HPI-Cardiology Cardiology Consultation: Date of Consultation 09/18/21 Time Seen by a Provider: 19:10 Date of Admission Attending Physician Admitting Physician Yuly Fuller MD Consulting Physician SHELDON ADAMS MD, MA, FACP, FACC, FSCAI, CCDS HPI: Chief Complaint: Palpitations, malaise 71 yo woman who has been experiencing gen malaise and weakness and shortness of breath for the last 2-3 day. Feeling of palpitations today: rapid, irreg heart beat. Went to pcp. Diagnosed with A Fib. Sent to ER and admitted. No syncope or near-syncope. No specific chest pain, just a gen feeling of discomfort Review of Systems-Cardiology Review of Systems Constitutional: As described under HPI Eyes: No vision change Ears/Nose/Throat: No ear discharge, No nasal drainage, No recent hearing loss Respiratory: As described under HPI Cardiovascular: As described under HPI Gastrointestinal: No diarrhea, No nausea Genitourinary: No dysuria, No hematuria, No urine frequency changes Musculoskeletal: back pain (chronic) Skin: No rash, No ulcerations Psychiatric/Neurological: No seizure, No focal weakness, No syncope Hematologic: No bleeding abnormalities [id number] Hx Patient Social History Have you traveled recently?: No Alcohol Use?: Yes Substance type: Marijuana Pt feels they are or have been: No Immunizations Up To Date Date of Influenza Vaccine: May 30, 2021 Past Medical History PMH As described under Assessment. Family Medical History Family Medical History: Does not report fam h/o early CAD Allergies and Home Medications Allergies Coded Allergies: No Known Drug Allergies (Unverified , 11/18/17) Patient Home Medication List Home Medication List Reviewed: Yes ALPRAZolam (Xanax Tablet) 0.25 Mg Tablet, 0.5 MG PO HS, (Reported) Entered as Reported by: BERTO ESCALERA on 11/18/17 0937 Atorvastatin Calcium (Atorvastatin Calcium) 20 Mg Tablet, 20 MG PO HS, (Reported) Entered as Reported by: DEANA STINSON on 07/21/18 1247 Levothyroxine Sodium (Levothyroxine Sodium) 150 Mcg Tablet, 150 MCG PO DAILY, (Reported) Entered as Reported by: BERTO ESCALERA on 11/18/17 0937 Pantoprazole Sodium (Pantoprazole Sodium) 40 Mg Tablet.dr, 40 MG PO DAILY, (Reported) Entered as Reported by: DEANA STINSON on 07/21/18 1247 Sertraline HCl (Zoloft) 100 Mg Tablet, 100 MG PO DAILY, (Reported) Entered as Reported by: BERTO ESCALERA on 11/18/17 0937 Ubidecarenone (Co Q10) 100 Mg Capsule, 100 MG PO DAILY, (Reported) Entered as Reported by: DEANA STINSON on 07/21/18 1247 Physical Exam-Cardiology Physical Exam Vital Signs/I&O 09/18/21 09/18/21 09/18/21 15:48 18:00 18:05 Temp 36.2 Pulse 127 Resp 18 B/P (MAP) 125/96 (106) Pulse Ox 96 O2 Delivery Room Air Room Air Room Air Capillary Refill : Less Than 3 Seconds Constitutional: AAO x 3, well-developed, well-nourished HEENT: PERRL, EOMI, hearing is well preserved; No xanthelasmas are seen Neck: carotid pulses are 2 + bilaterally, with good upstrokes Respiratory: No accessory muscle use; other (good, bilat air entry) Cardiovascular: No regular rate-rhythm; irregularly irregular, S1 and S2, systolic murmur (soft TYRONE at card basee) Gastrointestinal: No tender; soft; No guarding, No rebound; audible bowel sounds Extremities: No clubbing, No cyanosis, No significant edema Neurologic/Psychiatric: oriented x 3, other (moves all her limbs equally) Skin: No rash on exposed areas, No ulcerations on exposed areas Data Review Labs Laboratory Tests 09/18/21 15:39: Influenza Type A (RT-PCR) Not Detected, Influenza Type B (RT-PCR) Not Detected, SARS-CoV-2 RNA (RT-PCR) Not Detected 09/18/21 15:57: White Blood Count 6.3, Red Blood Count 4.38, Hemoglobin 12.7, Hematocrit 40, Mean Corpuscular Volume 91, Mean Corpuscular Hemoglobin 29, Mean Corpuscular Hemoglobin Concent 32, Red Cell Distribution Width 14.2, Platelet Count 288, Mean Platelet Volume 9.7, Immature Granulocyte % (Auto) 0, Neutrophils (%) (Auto) 51, Lymphocytes (%) (Auto) 36, Monocytes (%) (Auto) 9, Eosinophils (%) (Auto) 2, Basophils (%) (Auto) 1, Neutrophils # (Auto) 3.2, Lymphocytes # (Auto) 2.3, Monocytes # (Auto) 0.6, Eosinophils # (Auto) 0.2, Basophils # (Auto) 0.1, Immature Granulocyte # (Auto) 0.0, Prothrombin Time 13.1, INR Comment 1.0, Activated Partial Thromboplast Time 29, Sodium Level 140, Potassium Level 3.6, Chloride Level 107, Carbon Dioxide Level 22, Anion Gap 11, Blood Urea Nitrogen 17, Creatinine 0.86, Estimat Glomerular Filtration Rate 65, BUN/Creatinine Ratio 20, Glucose Level 132H, Calcium Level 8.5, Corrected Calcium 8.6, Magnesium Level 1.9, Total Bilirubin 0.5, Aspartate Amino Transf (AST/SGOT) 19, Alanine Aminotransferase (ALT/SGPT) 15, Alkaline Phosphatase 59, Troponin I < 0.028, C-Reactive Protein High Sensitivity 0.32, B-Type Natriuretic Peptide 237.5H, Total Protein 7.2, Albumin 3.9, TSH [place] Testing 0.88 Laboratory Tests 09/18/21 15:57 A/P-Cardiology Assessment/Admission Diagnosis PAF with RVR, first diagnosed on 09/18/21 - MPI of 06/13/20: no ischemia or infarction, LVEF 75% - Echo of 06/13/20: LVEF 55-65%, grade 2 quach dysfunction, mild to mod dilatation of LA, PASP 25-30 mmHg Mild BNP elevation without clinical evidence of CHF, likely related to PAF Hypothyroidism - managed by pcp Obesity HEIDI - treated with CPAP RA - managed by PCP Hypertension - controlled Hyperglycemia - consistent wit borderline DM II (blood gluc 143 and Hgb A1C 5.6 on 05/18/20, followed by pcp Discussion and Recomendations * Diltiazem for ventricular rate control * D/c losartan and metoprolol succinate to allow more room on bp * Apixaban for stroke prophylaxis * Monitor labs * I discussed her CV issues with her and her daughter Clinical Quality Measures AMI/AHF: ASA po Prior to arrival: SHELDON Vasquez MD FACP [facility] Sep 18, 2021 19:44
[2021-09-18] MEDS ORDERED: AtorvaSTATin TABLET 10 MG TABLET PO SCH (21:00)
[2021-09-19] VITALS (7 sets, daily range): BP systolic 81–123; BP diastolic 51–89
[2021-09-19] MEDS ORDERED: KETOROLAC 15 MG/ML VIAL IVP ONE
[2021-09-19] MEDS ORDERED: ACETAMINOPHEN 500 MG TAB (TYLENOL) PO PRN
[2021-09-19] MEDS ORDERED: ACETAMINOPHEN 500 MG TAB (TYLENOL) ONE (00:09)
[2021-09-19] MEDS ORDERED: KETOROLAC 15 MG/ML VIAL ONE (00:09)
[2021-09-19] MEDS: CATHETER FLUSH 10 ML SYR IV SCH ×3 (00:12→12:36)
[2021-09-19] MEDS: dilTIAZem DRIP PRE-MIX 125 ML IV SCH (00:31)
[2021-09-19 06:34] LABS: TRIGLYCERIDES 121 MG/DL (<150); VLDL CHOLESTEROL 24 MG/DL (5-40)
[2021-09-19 06:39] LABS: CHOLESTEROL 147 MG/DL (< 200)
[2021-09-19 06:40] LABS: HDL CHOLESTEROL 50 MG/DL (40-60)
--- NOTE | 2021-09-19 08:36 | History & Physical ---
History of Present Illness History of Present Illness Reason for visit/HPI PT IS A 71 Y/O FEMALE WHO IS KNOWN TO ME FROM CLINIC. SHE PRESENTED TO THE ER AFTER HAVING WALKED INTO THE OFFICE FOR HER BLOOD PRESSURE TO BE CHECKED AND WAS FOUND TO HAVE A HEART RATE OVER 150. THE PT WAS INSTRUCTED TO GO TO THE ER DUE TO HER SYMPTOMS OF DYSPNEA, CHEST PRESSURE AND TACHYCARDIA FOR AN ACUTE EVALUATION FOR HER CARDIAC SYMPTOMS. SHE WAS FOUND TO BE IN ACUTE ATRIAL FIBRILLATION AND ADMITTED TO THE HOSPITAL FOR MANAGEMENT. Date of Admission Sep 18, 2021 at 17:31 Date Seen by a Provider: Sep 19, 2021 Time Seen by a Provider: 09:40 I consulted on this patient on 09/19/21 08:36 Attending Physician Stacey Crowe MD Facp Fac Ccds Admitting Physician Carolee Fuller MD Consult Allergies and Home Medications Allergies Coded Allergies: No Known Drug Allergies (Unverified , 11/18/17) Patient Home Medication List Home Medication List Reviewed: Yes ALPRAZolam (Xanax Tablet) 0.25 Mg Tablet, 0.5 MG PO HS, (Reported) Entered as Reported by: BERTO ESCALERA on 11/18/1737 Atorvastatin Calcium (Atorvastatin Calcium) 20 Mg Tablet, 20 MG PO HS, (Reported) Entered as Reported by: DEANA STINSON on 07/21/181246 Levothyroxine Sodium (Levothyroxine Sodium) 150 Mcg Tablet, 150 MCG PO DAILY, (Reported) Entered as Reported by: BERTO ESCALERA on 11/18/1737 Pantoprazole Sodium (Pantoprazole Sodium) 40 Mg Tablet.dr, 40 MG PO DAILY, (Reported) Entered as Reported by: DEANA STINSON on 07/21/181246 Sertraline HCl (Zoloft) 100 Mg Tablet, 100 MG PO DAILY, (Reported) Entered as Reported by: BERTO ESCALERA on 11/18/17 09 Ubidecarenone (Co Q10) 100 Mg Capsule, 100 MG PO DAILY, (Reported) Entered as Reported by: DEANA STINSON on 07/21/18 124 Past Dsbmogt-Ieygbf-Rwlbwd Hx Patient Social History Marrital Status: Number of Children: 3 Number of living children: 3 Living Status: LIVES ALONE IN HOME [place] Employed/Student: retired Tobacco Use?: No Smoking Status: Never a Smoker Substance use?: Yes Substance type: Marijuana Additional substance use comme: "GUMMIES" Alcohol Use?: Yes Alcohol Frequency: Once in a while Pt feels they are or have been: No Immunizations Up To Date Date of Influenza Vaccine: May 30, 2021 First/Initial COVID19 Vaccinat: OCT Second COVID19 Vaccination Rohan: NOVEMBER Seasonal Allergies Seasonal Allergies: No Current Status status: No Advance Directives: Yes Advance Directive Location: Home Communicates: Verbally Primary Language: Syrian Preferred Spoken Language: Syrian Is interpretation needed?: No Sensory deficits: Vision impairment Implanted or Applied Medical D: None Past Medical History Surgeries: Abdominal (EGD with dilation of esophageal stricture) Sleep Apnea Currently Using CPAP: Yes High Cholesterol Sexually Transmitted Disease: No HIV/AIDS: No Gastroesophageal Reflux, Diverticulosis, Hepatitis, Polyps Hypothyroidsim Loss of Vision: Bilateral Hearing Impairment: Denies Anxiety Adverse Reaction/Blood Tranf: No (N/A) Family Medical History Reviewed and Corrections made Heart Disease, Diabetes, Hypertension Review of Systems Constitutional: No chills, No fever; malaise, weakness EENTM: No hoarseness, No throat pain Respiratory: No cough; dyspnea on exertion, short of breath Cardiovascular: No chest pain; edema, palpitations Gastrointestinal: No abdominal pain, No constipation, No diarrhea, No nausea, No vomiting Genitourinary: No dysuria, No frequency Musculoskeletal: joint pain (CHRONIC); No muscle weakness Psychiatric/Neurological: Denies Anxiety, Denies Depressed, Denies Weakness All Other Systems Reviewed Negative Unless Noted: Yes Physical Exam Vital Signs Vital Signs - First Documented 09/18/21 09/18/21 15:48 18:05 Temp 36.2 Pulse 127 Resp 18 B/P (MAP) 125/96 (106) Pulse Ox 96 O2 Delivery Room Air Capillary Refill : Less Than 3 Seconds Height, Weight, BMI Height: 5'5.00" Weight: 250lbs. 0.0oz. 113.177375iy; 60.20 BMI Method:Stated General Appearance: No Apparent Distress, WD/WN Eyes: Bilateral Eye Normal Inspection, Bilateral Eye PERRL, Bilateral Eye EOMI HEENT: PERRL/EOMI, TMs Normal, Normal ENT Inspection, Pharynx Normal Neck: Full Range of Motion, Normal Inspection, Non Tender, Supple Respiratory: Chest Non Tender, Lungs Clear, Normal Breath Sounds, No Accessory Muscle Use, No Respiratory Distress Cardiovascular: Irregularly Irregular, Tachycardia Gastrointestinal: Normal Bowel Sounds, No Organomegaly, No Pulsatile Mass, Non Tender, Soft Rectal: Deferred Back: Normal Inspection, No CVA Tenderness, No Vertebral Tenderness Extremity: Normal Capillary Refill, Non Tender, No Calf Tenderness, No Pedal Edema Neurologic/Psychiatric: Alert, Oriented x3, No Motor/Sensory Deficits, Normal Mood/Affect, residential appraiser II-XII Norm as Tested Skin: Normal Color, Warm/Dry Lymphatic: No Adenopathy Assessment/Plan Assessment and Plan ACUTE ATRIAL FIBRILLATION DYSPNEA HYPOTHYROIDISM ANXIETY MORBID OBESITY RHEUMATOID ARTHRITIS GERD DEPRESSION ACUTE ATRIAL FIBRILLATION - PT WAS ADMITTED TO THE HOSPITAL FOR RATE CONTROL, PT STARTED ON - CARDIZEM DRIP - ELIQUIS (WILL NEED TO BE PRESCRIBED OUTPATIENT BY SHIPPING PACKER) - MONITOR SYMPTOMS CLOSELY, WILL TRANSITION TO ORAL MEDICATIONS ABLE BASED ON HEART RATE DYSPNEA - IMPROVED AFTER HEART RATE CONTROL HYPOTHYROIDISM - TSH IS OKAY- FREE T4 PENDING ANXIETY WITH CHRONIC DEPRESSION - RESTART ANXIOLYTIC AND SSRI MORBID OBESITY - CALORIC RESTRICTION RHEUMATOID ARTHRITIS - PT ON TREATMENT OUTPATIENT FROM DR. HOWELL GERD - PT ON PANTOPRAZOLE AT HOME, RESTART Admission Diagnosis ACUTE ATRIAL FIBRILLATION DYSPNEA HYPOTHYROIDISM ANXIETY MORBID OBESITY RHEUMATOID ARTHRITIS GERD DEPRESSION Admission Status: Observation Clinical Quality Measures AMI/AHF: ASA po Prior to arrival: CAROLEE Burns MD Sep 19, 2021 08:36
[2021-09-19] MEDS ORDERED: APIXABAN 5 MG (ELIQUIS) TABLET PO SCH (09:00)
[2021-09-19] MEDS ORDERED: SERTRALINE 100 MG (ZOLOFT) TAB PO SCH (10:15)
[2021-09-19] MEDS ORDERED: PANTOPRAZOLE 40 MG (PROTONIX) TAB PO SCH (10:15)
[2021-09-19] MEDS ORDERED: CELE-63 PO ×2 (12:34)
[2021-09-19] MEDS ORDERED: LOSA100T57 PO ×2 (12:34)
[2021-09-19] MEDS ORDERED: ALPR0.254 PO ×2 (12:34)
[2021-09-19] MEDS ORDERED: ATOR10TA66 PO ×2 (12:34)
[2021-09-19] MEDS ORDERED: SERT-414 PO ×2 (12:34)
[2021-09-19] MEDS ORDERED: MTP25TSR PO ×6 (12:34→15:16)
[2021-09-19] MEDS ORDERED: MV-M1TAB55 PO ×2 (12:34)
[2021-09-19] MEDS ORDERED: APIX5TAB PO ×2 (14:01)
[2021-09-19] MEDS ORDERED: ATOR20TA66 PO ×2 (14:01)
[2021-09-19] MEDS ORDERED: DILT360C36 PO ×2 (14:38)
--- NOTE | 2021-09-19 15:06 | Cardiology Progress Note ---
Progress Note-Cardiology Events since last exam Date Seen by Provider: Sep 19, 2021 Time Seen by Provider: 15:05 Events since last exam We are following her for atrial fibrillation. She remains in atrial fibrilla tion. She still has palpitations. She denies chest discomfort, dyspnea at rest, syncope, or lower extremity edema. Certain portions of this document may have been dictated utilizing voice recognition technology. Inherent to this technology, typographical and grammatical errors may exist. As much as I am diligent to identify and correct these mistakes, some errors may remain in the document. Vitals Last set of Vitals Signs Vital Signs 09/19/21 09/19/21 08:00 11:40 Temp 36.4 Pulse 98 Resp 14 B/P (MAP) 123/89 (100) Pulse Ox 94 O2 Delivery Room Air Labs Labs Laboratory Tests 09/18/21 15:57 Exam Vital Signs Vital Signs Date Time Temp Pulse Resp B/P (MAP) Pulse Ox O2 Delivery O2 Flow Rate FiO2 09/19/21 11:40 36.4 98 14 123/89 (100) 94 09/19/21 08:00 Room Air Physical Exam General: Alert. No acute distress. She is morbidly obese. Eye: No xanthelasma. HENT: Normocephalic. Neck: Jugular venous pressure does not appear elevated. Respiratory: Lungs are clear to auscultation. Respirations are non-labored. Breath sounds are equal. Symmetrical chest wall expansion. Cardiovascular: Tachycardia with irregular rhythm. No murmur. No gallop. No edema. Gastrointestinal: Soft. Normal bowel sounds. Skin: Warm. Dry. Neurologic: Alert and oriented to person, place, time. Cranial nerves 3-11 grossly intact. Psychiatric: Cooperative. Appropriate mood & affect. Labs Laboratory Tests Test 09/18/21 15:39 09/18/21 15:57 09/19/21 06:00 09/19/21 06:06 Range/Units Influenza Type A (RT-PCR) Not Detected Not Detecte Influenza Type B (RT-PCR) Not Detected Not Detecte SARS-CoV-2 RNA (RT-PCR) Not Detected Not Detecte White Blood Count 6.3 4.3-11.0 10^3/uL Red Blood Count 4.38 3.80-5.11 10^6/uL Hemoglobin 12.7 11.5-16.0 g/dL Hematocrit 40 35-52 % Mean Corpuscular Volume 91 80-99 fL Mean Corpuscular Hemoglobin 29 25-34 pg Mean Corpuscular Hemoglobin Concent 32 32-36 g/dL Red Cell Distribution Width 14.2 10.0-14.5 % Platelet Count 288 130-400 10^3/uL Mean Platelet Volume 9.7 9.0-12.2 fL Immature Granulocyte % (Auto) 0 % Neutrophils (%) (Auto) 51 42-75 % Lymphocytes (%) (Auto) 36 12-44 % Monocytes (%) (Auto) 9 0-12 % Eosinophils (%) (Auto) 2 0-10 % Basophils (%) (Auto) 1 0-10 % Neutrophils # (Auto) 3.2 1.8-7.8 10^3/uL Lymphocytes # (Auto) 2.3 1.0-4.0 10^3/uL Monocytes # (Auto) 0.6 0.0-1.0 10^3/uL Eosinophils # (Auto) 0.2 0.0-0.3 10^3/uL Basophils # (Auto) 0.1 0.0-0.1 10^3/uL Immature Granulocyte # (Auto) 0.0 0.0-0.1 10^3/uL Prothrombin Time 13.1 12.2-14.7 SEC INR Comment 1.0 0.8-1.4 Activated Partial Thromboplast Time 29 24-35 SEC Sodium Level 140 135-145 MMOL/L Potassium Level 3.6 3.6-5.0 MMOL/L Chloride Level 107 98-107 MMOL/L Carbon Dioxide Level 22 21-32 MMOL/L Anion Gap 11 5-14 MMOL/L Blood Urea Nitrogen 17 7-18 MG/DL Creatinine 0.86 0.60-1.30 MG/DL Estimat Glomerular Filtration Rate 65 BUN/Creatinine Ratio 20 Glucose Level 132 H 70-105 MG/DL Calcium Level 8.5 8.5-10.1 MG/DL Corrected Calcium 8.6 8.5-10.1 MG/DL Magnesium Level 1.9 1.6-2.4 MG/DL Total Bilirubin 0.5 0.1-1.0 MG/DL Aspartate Amino Transf (AST/SGOT) 19 5-34 U/L Alanine Aminotransferase (ALT/SGPT) 15 0-55 U/L Alkaline Phosphatase 59 40-136 U/L Troponin I < 0.028 <0.028 NG/ML C-Reactive Protein High Sensitivity 0.32 0.00-0.50 MG/DL B-Type Natriuretic Peptide 237.5 H <100.0 PG/ML Total Protein 7.2 6.4-8.2 GM/DL Albumin 3.9 3.2-4.5 GM/DL TSH [employer] Testing 0.88 0.35-4.94 UIU/ML Triglycerides Level 121 <150 MG/DL Cholesterol Level 147 < 200 MG/DL LDL Cholesterol Direct 76 1-129 MG/DL VLDL Cholesterol 24 5-40 MG/DL HDL Cholesterol 50 40-60 MG/DL Free Thyroxine 0.99 0.70-1.48 NG/DL Diagnosis/Problems Diagnosis/Problems (1) Paroxysmal atrial fibrillation Assessment & Plan: Exact duration unknown. Heart rates have improved with oral diltiazem but still slightly above 100 bpm. I will give her a one-time dose of metoprolol succinate and from a cardiac standpoint she can be discharged home. She has been started on apixaban for stroke prophylaxis. I have sent prescriptions for diltiazem CD 360 mg, metoprolol succinate 25 mg and apixaban 5 mg twice a day to the outpatient pharmacy. After 4-6 weeks of anticoagulation, we will consider cardioversion. I have asked her to monitor her heart rates and blood pressures at home and I will see her in the office in 2 weeks. After that visit, she can go back to seeing her regular waxer but he will be out of town in 2 weeks. (2) Primary hypertension Assessment & Plan: I told her she should take diltiazem and metoprolol in the morning. We have discontinued losartan since she will be on diltiazem for the atrial fibrillation. (3) Mixed hyperlipidemia Assessment & Plan: Continue atorvastatin. (4) Morbid obesity Assessment & Plan: She needs to have some serious weight loss. If she cannot lose a significant amount of weight over the next 6-12 months, she would be a good candidate for bariatric surgery. JYOTHI OSWALD JR, MD Sep 19, 2021 15:06
[2021-09-19] MEDS ORDERED: ALPRAZolam 0.25 MG (XANAX) TAB PO SCH (21:00)
== END 2021-09-19 15:40 | disposition home or self-care (01) ==
LOC: EDUNIT# 15:28 → ER 15:31 → CSD 17:31
PROVIDERS: ADMIT Internal Medicine Cardiovascular Disease; ATTEND Internal Medicine Cardiovascular Disease
DX: I08.1 Rheumatic disorders of both mitral and tricuspid valves (principal); Z79.899 Other long term (current) drug therapy; E78.00 Pure hypercholesterolemia, unspecified; K21.9 Gastro-esophageal reflux disease without esophagitis; E03.9 Hypothyroidism, unspecified; F41.9 Anxiety disorder, unspecified; I48.91 Unspecified atrial fibrillation; E66.01 Morbid (severe) obesity due to excess calories; M06.9 Rheumatoid arthritis, unspecified; F32.A Depression, unspecified
CPT/HCPCS: 36415; 71045; 80053; 80061; 83735; 83880; 84439; 84443; 84484; 85025; 85610; 85730; 86141; 87636; 93005; 93041; 93306; G0378

== ENCOUNTER 2021-09-23 18:39 | Emergency (ER) | payer MEDICARE ==
[~2021-09-23] VITALS: Ht 167 cm; Wt 113.5 kg
[~2021-09-23 18:39] MED LIST changes: +ALPR0.254 PO; +APIX5TAB PO; +ATOR10TA66 PO; +CELE-63 PO; +DILT360C36 PO; +LOSA100T57 PO; +MTP25TSR PO; +MV-M1TAB55 PO; +SERT-414 PO
[2021-09-23 19:15] LABS: BASOPHILS % (AUTO) 1 % (0-10); EOSINOPHILS # (AUTO) 0.2 10^3/uL (0.0-0.3); EOSINOPHILS % (AUTO) 3 % (0-10); HEMATOCRIT 39 % (35-52); HEMOGLOBIN 12.4 g/dL (11.5-16.0); LYMPHOCYTES # (AUTO) 2.5 10^3/uL (1.0-4.0); LYMPHOCYTES % (AUTO) 36 % (12-44); MEAN CORPUSCULAR HEMOGLOBIN 29 pg (25-34); MEAN CORPUSCULAR HGB CONC 32 g/dL (32-36); MEAN CORPUSCULAR VOLUME 91 fL (80-99); MEAN PLATELET VOLUME 9.5 fL (9.0-12.2); MONOCYTES # (AUTO) 0.7 10^3/uL (0.0-1.0); MONOCYTES % (AUTO) 10 % (0-12); NEUTROPHILS # (AUTO) 3.4 10^3/uL (1.8-7.8); NEUTROPHILS % (AUTO) 50 % (42-75); PLATELET COUNT 253 10^3/uL (130-400); WHITE BLOOD COUNT 6.9 10^3/uL (4.3-11.0)
[2021-09-23 19:27] LABS: ALANINE AMINOTRANSFERASE 24 U/L (0-55); ALKALINE PHOSPHATASE 57 U/L (40-136); BILIRUBIN,TOTAL 0.5 MG/DL (0.1-1.0); BUN/CREATININE RATIO 21; CALCIUM 8.8 MG/DL (8.5-10.1); CARBON DIOXIDE 21 MMOL/L (21-32); CHLORIDE 108 MMOL/L (98-107); CREATININE SERUM 0.81 MG/DL (0.60-1.30); GFR ESTIMATED 70; GLUCOSE 94 MG/DL (70-105); INR 1.2 (0.8-1.4); MAGNESIUM 2.1 MG/DL (1.6-2.4); POTASSIUM 3.8 MMOL/L (3.6-5.0); PROTHROMBIN TIME PATIENT 15.1 SEC (12.2-14.7); SODIUM 141 MMOL/L (135-145)
--- NOTE | 2021-09-23 19:28 | Diagnostic Imaging Report ---
EXAMINATION: Chest radiograph, portable AP view. DATE: 09/23/2021 7:22 PM INDICATION: 71-year-old female, chest pain. COMPARISON: September 18, 2021. FINDINGS: Heart size and mediastinal contours are unchanged. There is no identified pneumothorax. There is no large pleural effusion. There is no identified interval focal airspace consolidation. There are slightly prominent pulmonary vascular markings with a mid and lower lung zone predominance. IMPRESSION: Unchanged mild prominent vascular markings with mid and lower lung zone predominance and cardiomegaly. Findings may reflect mild interstitial edema. Dictated by: Dictated on workstation # [id number]
[2021-09-23] MEDS ORDERED: FUROSEMIDE 40 MG/4 ML INJ (LASIX) IVP ONE (20:30)
[2021-09-23] MEDS ORDERED: meTOprolol TARTRATE 25 MG (LOPRESSOR) TABLET PO ONE (20:30)
[2021-09-23] MEDS ORDERED: KCL 10 MEQ TAB (MICRO K) PO ONE (20:30)
[2021-09-23] MEDS ORDERED: FURO40TA4 PO (20:44)
[2021-09-23] MEDS ORDERED: POTA-51 PO (20:44)
--- NOTE | 2021-09-23 20:45 | ED Cardiac General ---
History of Present Illness General Chief Complaint: Chest Pain Stated Complaint: ELEV HR/CHEST PRESSURE Nursing Triage Note: c/o chest pressure/ palpatations since 1500 dc'd from hospital 09/20/21 for same Source: patient, old records Exam Limitations: no limitations History of Present Illness Date Seen by Provider: Sep 23, 2021 Time Seen by Provider: 18:58 Initial Comments This 71-year-old woman with new diagnosis of atrial fibrillation had been admitted to the hospital September 18 and . It is unclear how long she has been in atrial fibrillation. She was discharged on Cardizem CD 360 mg daily which she did take this morning. She is anticoagulated on Eliquis. She reports having some subtle chest discomfort over the last couple of days and a recurrence of tachycardia. She also notes some increased swelling over the past few days. It was later discovered through further conversation that she had mistakenly discontinued metoprolol after discharge from the hospital. ASA po INSTITUTION DIRECTOR: No Allergies and Home Medications Allergies Coded Allergies: No Known Drug Allergies (Unverified , 11/18/17) Patient Home Medication List Home Medication List Reviewed: Yes ALPRAZolam (ALPRAZolam) 0.25 Mg Tablet, 0.25 MG PO DAILY, (Reported) Entered as Reported by: MELY COE on 09/19/21 1234 Apixaban (Eliquis) 5 Mg Tablet, 5 MG PO BID Prescribed by: JYOTHI PETERSON JR, MD on 09/19/21 1401 Atorvastatin Calcium (Atorvastatin Calcium) 20 Mg Tablet, 20 MG PO HS Prescribed by: JYOTHI PETERSON JR, MD on 09/19/21 1401 Celecoxib (Celecoxib) 200 Mg Capsule, 200 MG PO BID, (Reported) Entered as Reported by: MELY COE on 09/19/21 1234 Diltiazem HCl (Diltiazem 24Hr ER) 360 Mg Cap.er.24h, 360 MG PO DAILY Prescribed by: NOY FUENTES on 09/19/21 1438 Furosemide (Furosemide) 40 Mg Tablet, 40 MG PO DAILY Prescribed by: CARLOS BIRMINGHAM on 09/23/21 204 Levothyroxine Sodium (Levothyroxine Sodium) 150 Mcg Tablet, 150 MCG PO DAILY, (Reported) Entered as Reported by: BERTO ESCALERA on 11/18/17 0937 Metoprolol Succinate (Metoprolol Succinate) 25 Mg Tab.er.24h, 25 MG PO DAILY Prescribed by: NOY FUENTES on 09/19/21 1502 Metoprolol Succinate (Metoprolol Succinate) 25 Mg Tab.er.24h, 25 MG PO 1500 Prescribed by: JYOTHI PETERSON JR, MD on 09/19/21 1516 Mv-Mn/Folic Acid/Vit [id number]/[id number] (Alive Once Daily Women 50 Plus) 1 Each Tablet, 2 EACH PO DAILY, (Reported) Entered as Reported by: MELY COE on 09/19/21 1234 Pantoprazole Sodium (Pantoprazole Sodium) 40 Mg Tablet.dr, 40 MG PO DAILY, (Reported) Entered as Reported by: DEANA STINSON on 07/21/18 1247 Potassium Chloride (Potassium Chloride) 20 Meq Tablet.er, 20 MEQ PO DAILY Prescribed by: CARLOS BIRMINGHAM on 09/23/212043 Sertraline HCl (Sertraline HCl) 100 Mg Tablet, 150 MG PO DAILY, (Reported) Entered as Reported by: MELY COE on 09/19/21 1234 Ubidecarenone (Co Q10) 100 Mg Capsule, 100 MG PO DAILY, (Reported) Entered as Reported by: DEANA STINSON on 07/21/18 1247 Discontinued Medications Atorvastatin Calcium (Atorvastatin Calcium) 20 Mg Tablet, 20 MG PO HS, (Reported) Discontinued Reason: Duplicate Order Entered as Reported by: DEANA STINSON on 07/21/18 1247 Atorvastatin Calcium (Atorvastatin Calcium) 10 Mg Tablet, 10 MG PO HS, (Reported) Entered as Reported by: MELY COE on 09/19/21 1234 Losartan Potassium (Losartan Potassium) 100 Mg Tablet, 100 MG PO HS, (Reported) Entered as Reported by: MELY COE on 09/19/21 1234 Metoprolol Succinate (Metoprolol Succinate) 25 Mg Tab.er.24h, 25 MG PO DAILY, (Reported) Entered as Reported by: MELY COE on 09/19/21 1234 Sertraline HCl (Zoloft) 100 Mg Tablet, 100 MG PO DAILY, (Reported) Discontinued Reason: No Longer Taking Entered as Reported by: BERTO ESCALERA on 11/18/17 0937 Review of Systems Review of Systems Constitutional: malaise, weight gain EENTM: No Symptoms Reported Respiratory: SOA With Exertion Cardiovascular: See HPI, Chest Pain, Palpitations Gastrointestinal: No Symptoms Reported Genitourinary: No Symptoms Reported Musculoskeletal: no symptoms reported Skin: no symptoms reported Psychiatric/Neurological: No Symptoms Reported Endocrine: No Symptoms Reported Hematologic/Lymphatic: No Symptoms Reported Past Ldyrqkk-Lfsejo-Ufwkgp Hx Patient Social History Tobacco Use?: No Substance use?: No Alcohol Use?: No Pt feels they are or have been: No Immunizations Up To Date First/Initial COVID19 Vaccinat: Oct COVID19 Vaccination Rohan: November COVID19 Vaccination Date: MAY Seasonal Allergies Seasonal Allergies: No Past Medical History Surgery/Hospitalization HX: afib, htn, high cholesterol, gerd, anxiety, depression Surgeries: Yes Abdominal Respiratory: Yes Sleep Apnea Currently Using CPAP: Yes Cardiac: Yes Atrial Fibrillation, High Cholesterol Neurological: No : No Reproductive Disorders: No Sexually Transmitted Disease: No HIV/AIDS: No Gastrointestinal: Yes (Esophageal stricture) Gastroesophageal Reflux, Diverticulosis, Hepatitis, Polyps Musculoskeletal: No Endocrine: Yes Hypothyroidsim HEENT: No Loss of Vision: Bilateral Hearing Impairment: Denies Cancer: No Psychosocial: No Anxiety Adverse Reaction/Blood Tranf: No (N/A) Family Medical History Heart Disease, Diabetes, Hypertension Physical Exam Vital Signs Vital Signs - First Documented Capillary Refill : Less Than 3 Seconds Height, Weight, BMI Height: 5'5.00" Weight: 250lbs. 0.0oz. 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 as 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 Skin: Normal Color, Warm/Dry Progress/Results/Core Measures Results/Orders Lab Results Laboratory Tests Test 09/23/21 18:57 Range/Units White Blood Count 6.9 4.3-11.0 10^3/uL Red Blood Count 4.31 3.80-5.11 10^6/uL Hemoglobin 12.4 11.5-16.0 g/dL Hematocrit 39 35-52 % Mean Corpuscular Volume 91 80-99 fL Mean Corpuscular Hemoglobin 29 25-34 pg Mean Corpuscular Hemoglobin Concent 32 32-36 g/dL Red Cell Distribution Width 14.6 H 10.0-14.5 % Platelet Count 253 130-400 10^3/uL Mean Platelet Volume 9.5 9.0-12.2 fL Immature Granulocyte % (Auto) 0 % Neutrophils (%) (Auto) 50 42-75 % Lymphocytes (%) (Auto) 36 12-44 % Monocytes (%) (Auto) 10 0-12 % Eosinophils (%) (Auto) 3 0-10 % Basophils (%) (Auto) 1 0-10 % Neutrophils # (Auto) 3.4 1.8-7.8 10^3/uL Lymphocytes # (Auto) 2.5 1.0-4.0 10^3/uL Monocytes # (Auto) 0.7 0.0-1.0 10^3/uL Eosinophils # (Auto) 0.2 0.0-0.3 10^3/uL Basophils # (Auto) 0.0 0.0-0.1 10^3/uL Immature Granulocyte # (Auto) 0.0 0.0-0.1 10^3/uL Prothrombin Time 15.1 H 12.2-14.7 SEC INR Comment 1.2 0.8-1.4 Activated Partial Thromboplast Time 33 24-35 SEC Sodium Level 141 135-145 MMOL/L Potassium Level 3.8 3.6-5.0 MMOL/L Chloride Level 108 H 98-107 MMOL/L Carbon Dioxide Level 21 21-32 MMOL/L Anion Gap 12 5-14 MMOL/L Blood Urea Nitrogen 17 7-18 MG/DL Creatinine 0.81 0.60-1.30 MG/DL Estimat Glomerular Filtration Rate 70 BUN/Creatinine Ratio 21 Glucose Level 94 70-105 MG/DL Calcium Level 8.8 8.5-10.1 MG/DL Corrected Calcium 8.8 8.5-10.1 MG/DL Magnesium Level 2.1 1.6-2.4 MG/DL Total Bilirubin 0.5 0.1-1.0 MG/DL Aspartate Amino Transf (AST/SGOT) 20 5-34 U/L Alanine Aminotransferase (ALT/SGPT) 24 0-55 U/L Alkaline Phosphatase 57 40-136 U/L Myoglobin 36.8 10.0-92.0 NG/ML Troponin I < 0.028 <0.028 NG/ML B-Type Natriuretic Peptide 247.4 H <100.0 PG/ML Total Protein 7.0 6.4-8.2 GM/DL Albumin 4.0 3.2-4.5 GM/DL My Orders Orders - CARLOS RANKIN MD Cbc With Automated Diff (09/23/21 18:55) Magnesium (09/23/21 18:55) Chest 1 View, Ap/Pa Only (09/23/21 18:55) Ekg Tracing (09/23/21 18:55) Comprehensive Metabolic Panel (09/23/21 18:55) Myoglobin Serum (09/23/21 18:55) Protime With Inr (09/23/21 18:55) Partial Thromboplastin Time (09/23/21 18:55) O2 (09/23/21 18:55) Monitor-Rhythm Ecg Trace Only (09/23/21 18:55) Ed Iv/Invasive Line Start (09/23/21 18:55) Bnp Ck (09/23/21 19:08) Troponin I [place] (09/23/21 18:57) Furosemide Injection (Lasix Injection) (09/23/21 20:30) Potassium Chloride (Tablet) (Klor Con Ta (09/23/21 20:30) Metoprolol Tartrate (Ir) Tab (Lopressor (09/23/21 20:30) Medications Given in ED Current Medications Medications Dose Ordered Sig/Elsie Route Start Time Stop Time Status Last Admin Dose Admin Furosemide 40 mg ONCE ONCE IVP 09/23/21 20:30 09/23/21 20:31 DC 09/23/21 20:32 40 MG Metoprolol Tartrate 25 mg ONCE ONCE PO 09/23/21 20:30 09/23/21 20:31 DC 09/23/21 20:32 25 MG Potassium Chloride 20 meq ONCE ONCE PO 09/23/21 20:30 09/23/21 20:31 DC 09/23/21 20:32 20 MEQ Vital Signs/I&O 09/23/21 09/23/21 09/23/21 18:45 18:45 20:47 Temp 36.7 36.5 Pulse 131 109 Resp 20 18 B/P (MAP) 150/117 (128) 135/101 Pulse Ox 95 95 97 O2 Delivery Room Air Room Air Room Air Blood Pressure Mean: 128 Progress Progress Note : Progress Note Patient was once again in atrial fibrillation with RVR. She mistakenly discontinued metoprolol after discharge which is likely a contributing factor to her symptoms. I discussed the situation with Dr. Peterson. We have developed a plan that includes restarting metoprolol as well as Lasix with follow-up in the clinic later this week. A dose of Lasix 40 mg IV was administered in the ER along with oral potassium. Metoprolol tartrate 25 mg was also given in the ER. Plan was communicated to the patient and she was agreeable. Initial ECG Impression Date: Sep 23, 2021 Initial ECG Impression Time: 18:46 Initial ECG Rate: 128 Initial ECG Rhythm: A Fib/Flutter Comment Atrial fibrillation with RVR. No ischemic ST elevation or depression noted. No abnormal intervals or axis deviation. Diagnostic Imaging Diagonstic Imaging: Xray Plain Films/CT/US/NM/MRI: chest Comments Chest x-ray viewed by me and report reviewed. See report below: NAME: REESE CRONIN [facility] REC#: [id number] PT STATUS: REG ER : 1950 PHYSICIAN: CARLOS RANKIN MD ADMIT DATE: 09/23/21/ER Signed Date of Exam:09/23/21 CHEST 1 VIEW, AP/PA ONLY EXAMINATION: Chest radiograph, portable AP view. DATE: 09/23/2021 7:22 PM INDICATION: 71-year-old female, chest pain. COMPARISON: September 18, 2021. FINDINGS: Heart size and mediastinal contours are unchanged. There is no identified pneumothorax. There is no large pleural effusion. There is no identified interval focal airspace consolidation. There are slightly prominent pulmonary vascular markings with a mid and lower lung zone predominance. IMPRESSION: Unchanged mild prominent vascular markings with mid and lower lung zone predominance and cardiomegaly. Findings may reflect mild interstitial edema. Dictated by: Dictated on workstation # [id number] Dict: 09/23/211922 Trans: 09/23/211939 [facility] [id number] Interpreted by: CAROL FAITH MD Electronically signed by: CAROL FAITH MD 09/23/211939 Departure Impression Primary Impression: Atrial fibrillation with RVR Additional Impressions: Lower leg edema Chest discomfort Disposition: 01 HOME, SELF-CARE Condition: Stable Departure-Patient Inst. Decision time for Depature: 20:42 Referrals: CAROLEE SAXENA MD (PCP/Family) Primary Care Physician JYOTHI PETERSON JR, MD Patient Instructions: Atrial Fibrillation (DC) Add. Discharge Instructions: Continue your medications as previously prescribed. Add Lasix (furosemide) each morning along with a dose of potassium. Always take potassium and Lasix (furosemide) together. Follow-up with Dr. Peterson later this week. Please call on Friday for an appointment time. You may call the ER if you have questions or concerns. Return to the ER if you have worsening symptoms. All discharge instructions reviewed with patient and/or family. Voiced understanding. Scripts Potassium Chloride (Potassium Chloride) 20 Meq Tablet.er 20 MEQ PO DAILY, #10 TAB Prov: CARLOS RANKIN MD 09/23/21 Furosemide (Furosemide) 40 Mg Tablet 40 MG PO DAILY, #10 TAB Prov: CARLOS RANKIN MD 09/23/21 Copy Copies To 1: CAROLEE SAXENA MD Copies To 2: SHELDON ADAMS MD FACP [facility] CCDS; JYOTHI PETERSON JR, MD BRUEGGEMANN, JOSHUA T MD Sep 23, 2021 20:45
[2021-09-23 20:47] VITALS: BP 135/101
== END 2021-09-23 20:52 | disposition home or self-care (01) ==
LOC: EDUNIT# 18:39 → ER 18:40
DX: I48.91 Unspecified atrial fibrillation (principal); R60.0 Localized edema; I10 Essential (primary) hypertension; E78.00 Pure hypercholesterolemia, unspecified; E03.9 Hypothyroidism, unspecified; F41.9 Anxiety disorder, unspecified; F32.9 Major depressive disorder, single episode, unspecified; K21.9 Gastro-esophageal reflux disease without esophagitis; Z79.01 Long term (current) use of anticoagulants; Z79.890 Hormone replacement therapy; Z79.899 Other long term (current) drug therapy
CPT/HCPCS: 36415; 71045; 80053; 83735; 83874; 83880; 84484; 85025; 85610; 85730; 93005; 93041

== ENCOUNTER → 2021-10-09 | Outpatient (CLI) | payer MEDICARE ==
[~2021-10-09] MED LIST changes: +FURO40TA4 PO; +POTA-51 PO
--- NOTE | 2021-10-09 17:03 | Diagnostic Imaging Report ---
INDICATION: Dyspnea and atrial fibrillation. TECHNIQUE/COMPARISON: PA and lateral films of the chest were obtained at 5:05 PM and compared to 09/23/2021. FINDINGS: There is prominent cardiomegaly. There is mild central vascular prominence which is similar to the prior study. There is no edema or pneumothorax. There are minimal bilateral pleural effusions. IMPRESSION: Cardiomegaly and central vascular congestion with no focal infiltrate. There are minimal bilateral pleural effusions. Dictated by: Dictated on workstation # [id number]
== END ==
LOC: RAD 16:42
PROVIDERS: ATTEND Nurse Practitioner Family
DX: I51.7 Cardiomegaly (principal); I48.91 Unspecified atrial fibrillation; R09.89 Other specified symptoms and signs involving the circulatory and respiratory systems
CPT/HCPCS: 71046

== ENCOUNTER → 2021-10-10 | Outpatient (CLI) | payer MEDICARE ==
[2021-10-10 10:03] LABS: HEMATOCRIT 38 % (35-52); HEMOGLOBIN 12.5 g/dL (11.5-16.0); MEAN CORPUSCULAR HEMOGLOBIN 29 pg (25-34); MEAN CORPUSCULAR HGB CONC 33 g/dL (32-36); MEAN CORPUSCULAR VOLUME 89 fL (80-99); MEAN PLATELET VOLUME 9.4 fL (9.0-12.2); PLATELET COUNT 243 10^3/uL (130-400); WHITE BLOOD COUNT 5.8 10^3/uL (4.3-11.0)
[2021-10-10 10:26] LABS: BILIRUBIN,TOTAL 0.8 MG/DL (0.1-1.0); CALCIUM 9.2 MG/DL (8.5-10.1); CREATININE SERUM 0.82 MG/DL (0.60-1.30); TOTAL PROTEIN 7.1 GM/DL (6.4-8.2)
== END ==
LOC: LAB 09:34
PROVIDERS: ATTEND Nurse Practitioner Family
DX: I48.91 Unspecified atrial fibrillation (principal)
CPT/HCPCS: 36415; 80053; 83880; 85027; 85379

== ENCOUNTER 2021-10-17 20:39 | Emergency (ER) | payer MEDICARE ==
[2021-10-17 21:23] LABS: BASOPHILS # (AUTO) 0.1 10^3/uL (0.0-0.1); BASOPHILS % (AUTO) 1 % (0-10); EOSINOPHILS # (AUTO) 0.2 10^3/uL (0.0-0.3); EOSINOPHILS % (AUTO) 2 % (0-10); HEMATOCRIT 41 % (35-52); HEMOGLOBIN 13.1 g/dL (11.5-16.0); LYMPHOCYTES # (AUTO) 2.3 10^3/uL (1.0-4.0); LYMPHOCYTES % (AUTO) 31 % (12-44); MEAN CORPUSCULAR HEMOGLOBIN 29 pg (25-34); MEAN CORPUSCULAR HGB CONC 32 g/dL (32-36); MEAN CORPUSCULAR VOLUME 90 fL (80-99); MEAN PLATELET VOLUME 9.7 fL (9.0-12.2); MONOCYTES # (AUTO) 0.8 10^3/uL (0.0-1.0); MONOCYTES % (AUTO) 11 % (0-12); NEUTROPHILS # (AUTO) 4.1 10^3/uL (1.8-7.8); NEUTROPHILS % (AUTO) 55 % (42-75); PLATELET COUNT 292 10^3/uL (130-400); WHITE BLOOD COUNT 7.3 10^3/uL (4.3-11.0)
--- NOTE | 2021-10-17 21:25 | ED Neurological Problem ---
General Chief Complaint: Neuro-Stroke Like Symptoms Stated Complaint: R EYE IMPAIRED - LOW HR Source: patient Exam Limitations: no limitations History of Present Illness Date Seen by Provider: Oct 17, 2021 Time Seen by Provider: 21:14 Initial Comments To ER by private vehicle with reports of right eye lateral field of vision loss noticed this evening when she went to get Chatters for dinner at 630pm. Her left eye field of vision is unaffected. She has had a slight headache today. Denies Weakness or tingling of any extremity or difficulty with speech. She has had shortness of breath for 1 month. She follows with Dr. Peterson from cardiology locally and [facility] cardiology. She is anticoagulated on Eliquis for about 3 weeks, she is on metoprolol and diltiazem. She has been in persistent atrial fibrillation for the past few weeks and is scheduled for cardioversion electrically tomorrow with Dr. Peterson. However today she has noticed that she has had a bit of fatigue with a heart rate as low as 40s. Timing/Duration: 1-3 hours Severity: moderate Associated Symptoms: denies symptoms Allergies and Home Medications Allergies Coded Allergies: No Known Drug Allergies (Unverified , 11/18/17) Patient Home Medication List Home Medication List Reviewed: Yes ALPRAZolam (ALPRAZolam) 0.25 Mg Tablet, 0.25 MG PO DAILY, (Reported) Entered as Reported by: MELY COE on 09/19/21 1234 Apixaban (Eliquis) 5 Mg Tablet, 5 MG PO BID Prescribed by: JYOTHI PETERSON JR, MD on 09/19/21 1401 Atorvastatin Calcium (Atorvastatin Calcium) 20 Mg Tablet, 20 MG PO HS Prescribed by: JYOTHI PETERSON JR, MD on 09/19/21 1401 Celecoxib (Celecoxib) 200 Mg Capsule, 200 MG PO BID, (Reported) Entered as Reported by: MELY COE on 09/19/21 1234 Diltiazem HCl (Diltiazem 24Hr ER) 360 Mg Cap.er.24h, 360 MG PO DAILY Prescribed by: NOY FUENTES on 09/19/21 1438 Furosemide (Furosemide) 40 Mg Tablet, 40 MG PO DAILY Prescribed by: CARLOS BIRMINGHAM on 09/23/21 204 Levothyroxine Sodium (Levothyroxine Sodium) 150 Mcg Tablet, 150 MCG PO DAILY, (Reported) Entered as Reported by: BERTO ESCALERA on 11/18/17 0937 Metoprolol Succinate (Metoprolol Succinate) 25 Mg Tab.er.24h, 25 MG PO DAILY Prescribed by: NOY FUENTES on 09/19/21 1502 Metoprolol Succinate (Metoprolol Succinate) 25 Mg Tab.er.24h, 25 MG PO 1500 Prescribed by: JYOTHI PETERSON JR, MD on 09/19/21 1516 Mv-Mn/Folic Acid/Vit [id number] (Alive Once Daily Women 50 Plus) 1 Each Tablet, 2 EACH PO DAILY, (Reported) Entered as Reported by: MELY COE on 09/19/21 1234 Pantoprazole Sodium (Pantoprazole Sodium) 40 Mg Tablet.dr, 40 MG PO DAILY, (Reported) Entered as Reported by: DEANA STINSON on 07/21/18 1247 Potassium Chloride (Potassium Chloride) 20 Meq Tablet.er, 20 MEQ PO DAILY Prescribed by: CARLOS BIRMINGHAM on 09/23/212043 Sertraline HCl (Sertraline HCl) 100 Mg Tablet, 150 MG PO DAILY, (Reported) Entered as Reported by: MELY COE on 09/19/21 1234 Ubidecarenone (Co Q10) 100 Mg Capsule, 100 MG PO DAILY, (Reported) Entered as Reported by: DEANA STINSON on 07/21/18 1247 Review of Systems Review of Systems Constitutional: see HPI Eyes: See HPI Ears, Nose, Mouth, Throat: no symptoms reported Respiratory: no symptoms reported Cardiovascular: no symptoms reported Genitourinary: no symptoms reported Musculoskeletal: no symptoms reported Skin: no symptoms reported Psychiatric/Neurological: No Symptoms Reported Endocrine: No Symptoms Reported Hematologic/Lymphatic: No Symptoms Reported Past Xxuulrp-Fdkqhr-Tzlhcr Hx Immunizations Up To Date First/Initial COVID19 Vaccinat: Oct COVID19 Vaccination Roahn: November COVID19 Vaccination Date: MAY Seasonal Allergies Seasonal Allergies: No Past Medical History Surgery/Hospitalization HX: afib, htn, high cholesterol, gerd, anxiety, depression Surgeries: Yes Abdominal Respiratory: Yes Sleep Apnea Currently Using CPAP: Yes Cardiac: Yes Atrial Fibrillation, High Cholesterol Neurological: No Reproductive Disorders: No Sexually Transmitted Disease: No HIV/AIDS: No Gastrointestinal: Yes (Esophageal stricture) Gastroesophageal Reflux, Diverticulosis, Hepatitis, Polyps Musculoskeletal: No Endocrine: Yes Hypothyroidsim HEENT: No Loss of Vision: Bilateral Hearing Impairment: Denies Cancer: No Psychosocial: No Anxiety Adverse Reaction/Blood Tranf: No (N/A) Family Medical History Heart Disease, Diabetes, Hypertension Physical Exam Vital Signs Vital Signs - First Documented 10/17/21 20:56 Temp 35.6 Pulse 60 Resp 16 B/P (MAP) 140/88 (105) Pulse Ox 96 O2 Delivery Room Air Capillary Refill : Height, Weight, BMI Height: 5'5.00" Weight: 250lbs. 0.0oz. [id number]; 40.00 BMI Method:Stated General Appearance: WD/WN, no apparent distress, obese (No distress alert and oriented NIH of 1 for the right upper outer visual field loss) HEENT: PERRL/EOMI, normal ENT inspection, other (loss of upper outer quadrant field of vision right eye only, left eye normal. ) Neck: non-tender, full range of motion Respiratory: normal breath sounds, no respiratory distress, no accessory muscle use Cardiovascular: other (On the bedside telemetry she is sinus rhythm in the upper 50s without ectopy.) Gastrointestinal: normal bowel sounds, non tender, soft Extremities: normal range of motion, non-tender Neurologic/Psychiatric: alert, normal mood/affect, oriented x 3 Crainal Nerves: normal hearing, normal speech, PERRL Motor/Sensory: no motor deficit, no sensory deficit Skin: normal color, warm/dry Stroke Onset of Symptoms Date of Onset of Symptoms: Oct 17, 2021 Time of Symptom Onset: 19:00 Onset of Symptoms: Yes Symptoms onset unknown: No NIH Stroke Scale Assessment Select: Initial Level of Consciousness: 0=Alert (0), Level of Consciousness- Questions: 0=Answers both month/age (0), LOC Commands: 0=Performs both tasks (0), Gaze: Normal (0), Visual Kang: 1=Partial hemianopia (1), Facial Movement (Facial Paresis): 0=Normal symmetrical mnt (0), Motor Function-Arms Right: 0=No drift (0), Motor Function-Arms Left: 0=No drift (0), Motor Function-Legs Right: 0=No drift (0), Motor Function-Legs Left: 0=No drift (0), Limb Ataxia: 0=Absent (0), Sensory: 0=Normal:no loss (0), Best Language: 0=No aphasia (0), Dysarthria: 0=Normal (0), Extinction & Inattention: 0=No abnormality (0), Total: 1 Stroke Thrombolytic Exclusion Age 18 or Over: No Acute intenal hemorrhage: No History of CVA: No Uncontrolled Coagulation Defec: No Intracranial Hemorrhage: No Severe Hypertension: No GI or Bleed: No Subarachnoid Hemorrhage: No Intracranial Neoplasm/Aneurysm: No Oral Anticoagulants: No Surgery or Trauma: No Puncture of Non-Compressible V: No Recent CPR: No Diabetic Hemorrhagic Retinopat: No Organ Biopsy: No Recent Obstetric Delivery: No Glucose: No Significant Hepatic Dysfunctio: No NIH Stoke Scale >22: No Bacterial Endocarditis: No Pericarditis: No Improving Symptoms: No Platelets: No TPA Contraindication: No Progress/Results/Core Measures Results/Orders Lab Results Laboratory Tests Test 10/17/21 21:05 10/17/21 21:32 10/17/21 22:43 Range/Units White Blood Count 7.3 4.3-11.0 10^3/uL Red Blood Count 4.55 3.80-5.11 10^6/uL Hemoglobin 13.1 11.5-16.0 g/dL Hematocrit 41 35-52 % Mean Corpuscular Volume 90 80-99 fL Mean Corpuscular Hemoglobin 29 25-34 pg Mean Corpuscular Hemoglobin Concent 32 32-36 g/dL Red Cell Distribution Width 14.2 10.0-14.5 % Platelet Count 292 130-400 10^3/uL Mean Platelet Volume 9.7 9.0-12.2 fL Immature Granulocyte % (Auto) 0 % Neutrophils (%) (Auto) 55 42-75 % Lymphocytes (%) (Auto) 31 12-44 % Monocytes (%) (Auto) 11 0-12 % Eosinophils (%) (Auto) 2 0-10 % Basophils (%) (Auto) 1 0-10 % Neutrophils # (Auto) 4.1 1.8-7.8 10^3/uL Lymphocytes # (Auto) 2.3 1.0-4.0 10^3/uL Monocytes # (Auto) 0.8 0.0-1.0 10^3/uL Eosinophils # (Auto) 0.2 0.0-0.3 10^3/uL Basophils # (Auto) 0.1 0.0-0.1 10^3/uL Immature Granulocyte # (Auto) 0.0 0.0-0.1 10^3/uL Prothrombin Time 14.5 12.2-14.7 SEC INR Comment 1.1 0.8-1.4 Activated Partial Thromboplast Time 34 24-35 SEC D-Dimer 2.12 H 0.00-0.49 UG/ML Sodium Level 140 135-145 MMOL/L Potassium Level 3.5 L 3.6-5.0 MMOL/L Chloride Level 105 98-107 MMOL/L Carbon Dioxide Level 22 21-32 MMOL/L Anion Gap 13 5-14 MMOL/L Blood Urea Nitrogen 23 H 7-18 MG/DL Creatinine 1.02 0.60-1.30 MG/DL Estimat Glomerular Filtration Rate 59 BUN/Creatinine Ratio 23 Glucose Level 119 H 70-105 MG/DL Calcium Level 9.3 8.5-10.1 MG/DL Corrected Calcium 9.1 8.5-10.1 MG/DL Total Bilirubin 0.4 0.1-1.0 MG/DL Aspartate Amino Transf (AST/SGOT) 49 H 5-34 U/L Alanine Aminotransferase (ALT/SGPT) 48 0-55 U/L Alkaline Phosphatase 62 40-136 U/L Troponin I < 0.028 <0.028 NG/ML B-Type Natriuretic Peptide 259.3 H <100.0 PG/ML Total Protein 7.5 6.4-8.2 GM/DL Albumin 4.2 3.2-4.5 GM/DL Urine Color YELLOW Urine Clarity CLEAR Urine pH 6.0 5-9 Urine Specific [place] <=1.005 1.016-1.022 Urine Protein NEGATIVE NEGATIVE Urine Glucose (UA) NEGATIVE NEGATIVE Urine Ketones NEGATIVE NEGATIVE Urine Nitrite NEGATIVE NEGATIVE Urine Bilirubin NEGATIVE NEGATIVE Urine Urobilinogen 0.2 < = 1.0 MG/DL Urine Leukocyte Esterase NEGATIVE NEGATIVE Urine RBC (Auto) NEGATIVE NEGATIVE Urine RBC NONE /HPF Urine WBC 0-2 /HPF Urine Squamous Epithelial Cells 0-2 /HPF Urine Renal Epithelial Cells NONE /HPF Urine Crystals NONE /LPF Urine Bacteria TRACE /HPF Urine Casts NONE /LPF Urine Mucus NEGATIVE /LPF Urine Culture Indicated NO My Orders Orders - HAYDER COELLO APRN Cbc With Automated Diff (10/17/21 21:11) Protime With Inr (10/17/21 21:11) Partial Thromboplastin Time (10/17/21 21:11) Comprehensive Metabolic Panel (10/17/21 21:11) Fibrin Degradation Products (10/17/21 21:11) Troponin I [place] (10/17/21 21:11) Ua Culture If Indicated (10/17/21 21:11) Chest 1 View, Ap/Pa Only (10/17/21 21:11) Ekg Tracing (10/17/21 21:11) Ed Iv/Invasive Line Start (10/17/21 21:11) Ed Iv/Invasive Line Start (10/17/21 21:11) Vital Signs Stroke Patient Q15M (10/17/21 21:11) Ct Head Wo-R/O Stroke (10/17/21 21:11) O2 (10/17/21 21:11) Intake & Output 06,14,22 (10/17/21 21:11) Monitor-Rhythm Ecg Trace Only (10/17/21 21:11) Dysphagia Screening Tool (10/17/21 21:11) Lipid Panel (10/18/21 06:00) Bnp [place] (10/17/21 21:11) Ct Angio Head/Neck (10/17/21 21:51) Erythrocyte Sedimentation Rate (10/17/21 21:54) Iohexol Injection (Omnipaque 350 Mg/Ml 1 (10/17/21 22:45) Received Contrast (Hold Metformin- Contr (10/17/21 22:45) Sodium Chloride Flush (Catheter Flush Sy (10/17/21 22:45) Ns (Ivpb) (Sodium Chloride 0.9% Ivpb Bag (10/17/21 22:45) Medications Given in ED Current Medications Medications Dose Ordered Sig/Elsie Route Start Time Stop Time Status Last Admin Dose Admin Iohexol 150 ml ONCE ONCE IV 10/17/21 22:45 10/17/21 22:46 DC 10/17/21 22:43 75 ML Sodium Chloride 10 ml NEEDED PRN IV 10/17/21 22:45 10/17/21 22:43 10 ML Sodium Chloride 100 ml ONCE ONCE IV 10/17/21 22:45 10/17/21 22:46 DC 10/17/21 22:43 80 ML Vital Signs/I&O 10/17/21 20:56 Temp 35.6 Pulse 60 Resp 16 B/P (MAP) 140/88 (105) Pulse Ox 96 O2 Delivery Room Air Departure Communication (Admissions) 2149-I spoke with Dr. Cornejo on-call for stroke neurology at the [facility]. 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 She is already anticoagulated on Eliquis and aspirin. Dr. Ndiaye does recommend CT angio head and neck. The patient has follow-up with optometry Dr. Benjamin Camacho tomorrow morning. I discussed the case with him as well. This could also be retinal detachment. Since this is upper outer visual loss it would be in her lower retina that was detached so there is limited risk of gravity pee ling the retina on down further overnight. He does recommend sleeping at a 45 degree angle overnight tonight. He will do a funduscopic exam in the morning. 2202-spoke with Dr. Peterson. He states that he has already canceled the electrical cardioversion tomorrow because he just saw her in the office today at 3:30 PM and she was sinus rhythm and he told her that he would cancel it. 2247-radiology has called to report the angio reveals no evidence of large vessel occlusion. NAME: REESE CRONIN [facility] REC#: [id number] PT STATUS: REG ER : 1950 PHYSICIAN: HAYDER COELLO APRN ADMIT DATE: 10/17/21/ER Signed Date of Exam:10/17/21 CT ANGIO HEAD/NECK PROCEDURE: CT angiography of the head and CT angiography of the neck with and without contrast. TECHNIQUE: Contiguous noncontrast images were obtained from the skull base through the vertex. After intravenous contrast administration, helical CT angiography of the neck was performed. Source data was reformatted into 3D MIP projections. Delayed post contrast acquisition was also obtained. Auto Exposure Controls were utilized during the CT exam to meet ALARA standards for radiation dose reduction. INDICATION: STROKE, visual changes. COMPARISON: None. FINDINGS: Visualized arch anatomy is normal. The common carotid, internal carotid and vertebral arteries are normal. Basilar artery and iliamna of [place] are intact. Venous structures are normal. There is no aneurysm, AVM or large vessel occlusion. There is no dissection. No irregular plaque formation is identified within the carotid systems. There is mild atherosclerotic change involving the carotid siphons. There is no abnormal enhancement or mass. IMPRESSION: No LVO identified. Report was called to Hayder Coello APRN in [place] at 10:44 p.m., by keegan. Dictated by: Dictated on workstation # [id number] Dict: 10/17/212233 Trans: 10/17/212246 PJE [id number] Interpreted by: CECILE BURGESS Electronically signed by: CECILE BURGESS 10/17/212246 NAME: ROSEANNEREESE [facility] REC#: [id number] PT STATUS: REG ER : 1950 PHYSICIAN: HAYDER COELLO APRN ADMIT DATE: 10/17/21/ER Draft Date of Exam:10/17/21 CT HEAD WO-R/O STROKE PROCEDURE: CT head w/o r/o stroke. TECHNIQUE: Multiple contiguous axial images were obtained through the brain without the use of intravenous contrast. Auto Exposure Controls were utilized during the CT exam to meet ALARA standards for radiation dose reduction. INDICATION: Stroke symptoms, right eye impairment. COMPARISON 06/22/2015. FINDINGS: Age-related cerebral volume loss and chronic microvascular changes are present. There is no focus of acute ischemia or hemorrhage. There is no midline shift or mass effect. No extra-axial fluid collection or mass is identified. No dense vessel sign is seen. The paranasal sinuses and mastoids are unremarkable. The visualized orbits and globes are intact. There is no skull fracture. IMPRESSION: No acute intracranial abnormalities. Dictated on workstation # [id number] Dict: 10/17/212128 Trans: 10/17/212130 PJE [id number] Interpreted by: CECILE BURGESS Electronically signed by: NAME: REESE CRONIN [facility] REC#: [id number] PT STATUS: REG ER : 1950 PHYSICIAN: HAYDER COELLO APRN ADMIT DATE: 10/17/21/ER Draft Date of Exam:10/17/21 CHEST 1 VIEW, AP/PA ONLY INDICATION: Chest pain, headache. COMPARISON: 09/23/2021. EXAMINATION: Single view of the chest. FINDINGS: Cardiac enlargement with interstitial infiltrates, likely CHF. There is no pneumothorax or effusion. Osseous structures are normal. IMPRESSION: Findings suspicious for CHF. Dictated on workstation # [id number] Dict: 10/17/212131 Trans: 10/17/212133 [facility] [id number] Interpreted by: CECILE BURGESS Electronically signed by: Impression Primary Impression: BRAO (branch retinal artery occlusion) Disposition: HOME, SELF-CARE Condition: Stable Departure-Patient Inst. Decision time for Depature: 22:05 Referrals: CAROLEE SAXENA MD (PCP/Family) Primary Care Physician Patient Instructions: NO INSTRUCTIONS GIVEN Add. Discharge Instructions: 1. Keep your appointment with eye Dr. Benjamin Camacho tomorrow morning. Return to ER for any concerns, worsening or changing symptoms. Continue all current medications. Sleep at 45 degree angle this evening. Copy Copies To 1: CAROLEE SAXENA MD; KHADIJAH CAMACHO OD; JYOTHI PETERSON JR, MD BATES, PETER J APRN Oct 17, 2021 21:25
--- NOTE | 2021-10-17 21:32 | Diagnostic Imaging Report ---
PROCEDURE: CT head w/o r/o stroke. TECHNIQUE: Multiple contiguous axial images were obtained through the brain without the use of intravenous contrast. Auto Exposure Controls were utilized during the CT exam to meet ALARA standards for radiation dose reduction. INDICATION: Stroke symptoms, right eye impairment. COMPARISON 06/22/2015. FINDINGS: Age-related cerebral volume loss and chronic microvascular changes are present. There is no focus of acute ischemia or hemorrhage. There is no midline shift or mass effect. No extra-axial fluid collection or mass is identified. No dense vessel sign is seen. The paranasal sinuses and mastoids are unremarkable. The visualized orbits and globes are intact. There is no skull fracture. IMPRESSION: No acute intracranial abnormalities. Dictated by: Dictated on workstation # [id number]
[2021-10-17 21:35] LABS: FIBRIN DEGRADATION PRODUCTS 2.12 UG/ML (0.00-0.49); INR 1.1 (0.8-1.4); PROTHROMBIN TIME PATIENT 14.5 SEC (12.2-14.7)
--- NOTE | 2021-10-17 21:35 | Diagnostic Imaging Report ---
INDICATION: Chest pain, headache. COMPARISON: 09/23/2021. EXAMINATION: Single view of the chest. FINDINGS: Cardiac enlargement with interstitial infiltrates, likely CHF. There is no pneumothorax or effusion. Osseous structures are normal. IMPRESSION: Findings suspicious for CHF. Dictated by: Dictated on workstation # [id number]
[2021-10-17 21:41] LABS: BILIRUBIN,URINE NEGATIVE (NEGATIVE); CLARITY,URINE CLEAR; COLOR,URINE YELLOW; GLUCOSE, URINE (UA) NEGATIVE (NEGATIVE); KETONES,URINE NEGATIVE (NEGATIVE); LEUKOCYTE ESTERASE ,URINE NEGATIVE (NEGATIVE); NITRITE,URINE NEGATIVE (NEGATIVE); PROTEIN,URINE NEGATIVE (NEGATIVE)
[2021-10-17 21:42] LABS: ALANINE AMINOTRANSFERASE 48 U/L (0-55); ALBUMIN 4.2 GM/DL (3.2-4.5); ALKALINE PHOSPHATASE 62 U/L (40-136); BILIRUBIN,TOTAL 0.4 MG/DL (0.1-1.0); BUN/CREATININE RATIO 23; CALCIUM 9.3 MG/DL (8.5-10.1); CARBON DIOXIDE 22 MMOL/L (21-32); CHLORIDE 105 MMOL/L (98-107); CREATININE SERUM 1.02 MG/DL (0.60-1.30); GFR ESTIMATED 59; GLUCOSE 119 MG/DL (70-105); POTASSIUM 3.5 MMOL/L (3.6-5.0); SODIUM 140 MMOL/L (135-145); TOTAL PROTEIN 7.5 GM/DL (6.4-8.2)
[2021-10-17 21:52] LABS: BACTERIA,URINE TRACE /HPF; SQUAMOUS EPITHELIAL CELL,UR 0-2 /HPF; WBC,URINE 0-2 /HPF
[2021-10-17] MEDS ORDERED: NS 100 ML (IVPB) BAG IV ONE (22:45)
[2021-10-17] MEDS ORDERED: CATHETER FLUSH 10 ML SYR IV PRN (22:45)
[2021-10-17] MEDS ORDERED: IOHEXOL 350 MG/ML 150 ML (OMNIPAQUE 350) VIAL IV ONE (22:45)
[2021-10-17] MEDS ORDERED: HOLD METFORMIN - RECEIVED CONTRAST 20 ML VIAL IV SCH (22:45)
--- NOTE | 2021-10-17 22:46 | Diagnostic Imaging Report ---
PROCEDURE: CT angiography of the head and CT angiography of the neck with and without contrast. TECHNIQUE: Contiguous noncontrast images were obtained from the skull base through the vertex. After intravenous contrast administration, helical CT angiography of the neck was performed. Source data was reformatted into 3D MIP projections. Delayed post contrast acquisition was also obtained. Auto Exposure Controls were utilized during the CT exam to meet ALARA standards for radiation dose reduction. INDICATION: STROKE, visual changes. COMPARISON: None. FINDINGS: Visualized arch anatomy is normal. The common carotid, internal carotid and vertebral arteries are normal. Basilar artery and [place] of [place] are intact. Venous structures are normal. There is no aneurysm, AVM or large vessel occlusion. There is no dissection. No irregular plaque formation is identified within the carotid systems. There is mild atherosclerotic change involving the carotid siphons. There is no abnormal enhancement or mass. IMPRESSION: No LVO identified. Report was called to Andrew Coello APRN in [place] at 10:44 p.m., by keegan. Dictated by: Dictated on workstation # [id number]
[2021-10-17 23:14] VITALS: BP 120/70
== END 2021-10-17 23:14 | disposition home or self-care (01) ==
LOC: EDUNIT# 20:39 → ER 20:41
DX: H34.231 Retinal artery branch occlusion, right eye (principal); G47.30 Sleep apnea, unspecified; E03.9 Hypothyroidism, unspecified; F41.9 Anxiety disorder, unspecified; E78.00 Pure hypercholesterolemia, unspecified; E66.9 Obesity, unspecified; K21.9 Gastro-esophageal reflux disease without esophagitis; I48.91 Unspecified atrial fibrillation; F32.9 Major depressive disorder, single episode, unspecified; Z68.41 Body mass index [BMI] 40.0-44.9, adult; Z79.890 Hormone replacement therapy; Z79.01 Long term (current) use of anticoagulants; Z79.899 Other long term (current) drug therapy
CPT/HCPCS: 36415; 70450; 70496; 70498; 71045; 80053; 81000; 83880; 84484; 85025; 85379; 85610; 85652; 85730; 93005; 93041

== ENCOUNTER → 2021-11-01 | Outpatient (CLI) | payer MEDICARE ==
[~2021-11-01] MED LIST changes: +CATHETER FLUSH 10 ML SYR IV PRN; +REGADENOSON 0.4 MG/5 ML SYR (LEXISCAN) IV ONE
[2021-11-01 12:59] VITALS: BP 133/81
--- NOTE | 2021-11-02 08:53 | NUCLEAR STRESS TEST ---
REGADENOSON NUCLEAR STRESS Date of procedure: 11/01/2021. Primary care provider: Yuly Fuller MD Admitting physician: To Peterson Jr., MD. INDICATION: Persistent atrial fibrillation. BASELINE ELECTROCARDIOGRAM: Sinus bradycardia at 59 bpm with low voltage in the precordial leads and possible old septal myocardial infarction. STRESS TEST PROCEDURE: The patient was administered 0.4 mg of intravenous Regadenoson. The resting heart rate was 59 bpm and the peak heart rate was 78 bpm. The resting blood pressure was 133/81 mmHg and the minimum blood pressure was 127/84 mmHg. This represents a normal heart rate and a normal blood pressure response to Regadenoson. The test was stopped due to the protocol. There was no chest discomfort during the test. There were no arrhythmias during the test. There were no significant stress induced electrocardiogram changes. NUCLEAR PROCEDURE: The patient was administered 10.7 mCi of intravenous technetium 99m Tetrofosmin at rest for the rest images. The patient was subsequently administered 31.7 mCi of intravenous technetium 99m Tetrofosmin at peak stress for the stress images. Following an appropriate wait after each injection, imaging was obtained. The images were subsequently processed and reformatted in the usual views. Gated imaging was obtained. The image quality was adequate with a mild amount of gastrointestinal and a moderate amount of breast attenuation artifact. CT attenuation correction was used as a adjunct to standard imaging. Both the corrected and uncorrected images were reviewed for interpretation. NUCLEAR RESULTS: There was a small, mild intensity, reversible distal anterior and apical defect with a small amount of inducible ischemia with a summed stress score of 3 and a summed difference score of 3. There was normal left ventricular chamber size with an end-diastolic volume of 67 mL and an end- systolic volume of 21 mL. There was no evidence of transient ischemic dilatation. The TID ratio was 0.92. There was normal wall motion in all segments with a calculated ejection fraction of 69%. IMPRESSION: 1. Normal heart rate and blood pressure response to regadenoson. 2. There was no chest discomfort, arrhythmias, or electrocardiogram changes during the test. 3. There was a small, mild intensity, reversible distal anterior and apical defect with a small amount of inducible ischemia with a summed stress score of 3 and a summed difference score of 3. 4. There was normal wall motion in all segments with a calculated ejection fraction of 69%. 5. This is an abnormal result although represents low risk for future coronary ischemic events. Certain portions of this document may have been dictated utilizing voice recognition technology. Inherent to this technology, typographical and grammatical errors may exist. As much as I am diligent to identify and correct these mistakes, some errors may remain in the document. TO PETERSON JR, MD Nov 02, 2021 08:53
== END ==
LOC: CARD 12:15
PROVIDERS: ATTEND Internal Medicine Cardiovascular Disease
DX: I48.19 Other persistent atrial fibrillation (principal)
CPT/HCPCS: 78452; 93017; A9502

== ENCOUNTER → 2021-11-12 | Outpatient (CLI) | payer MEDICARE ==
[~2021-11-12] MED LIST changes: -CATHETER FLUSH 10 ML SYR IV PRN; -REGADENOSON 0.4 MG/5 ML SYR (LEXISCAN) IV ONE
[2021-11-12 13:55] LABS: BASOPHILS % (AUTO) 1 % (0-10); EOSINOPHILS # (AUTO) 0.2 10^3/uL (0.0-0.3); EOSINOPHILS % (AUTO) 3 % (0-10); HEMATOCRIT 42 % (35-52); HEMOGLOBIN 13.1 g/dL (11.5-16.0); LYMPHOCYTES # (AUTO) 1.3 10^3/uL (1.0-4.0); LYMPHOCYTES % (AUTO) 23 % (12-44); MEAN CORPUSCULAR HEMOGLOBIN 28 pg (25-34); MEAN CORPUSCULAR HGB CONC 31 g/dL (32-36); MEAN CORPUSCULAR VOLUME 89 fL (80-99); MEAN PLATELET VOLUME 9.9 fL (9.0-12.2); MONOCYTES # (AUTO) 0.6 10^3/uL (0.0-1.0); MONOCYTES % (AUTO) 10 % (0-12); NEUTROPHILS # (AUTO) 3.6 10^3/uL (1.8-7.8); NEUTROPHILS % (AUTO) 63 % (42-75); PLATELET COUNT 256 10^3/uL (130-400); WHITE BLOOD COUNT 5.7 10^3/uL (4.3-11.0)
[2021-11-12 14:07] LABS: INR 1.1 (0.8-1.4); PROTHROMBIN TIME PATIENT 14.8 SEC (12.2-14.7)
[2021-11-12 14:10] LABS: POTASSIUM 3.9 MMOL/L (3.6-5.0)
[2021-11-12 14:11] LABS: CALCIUM 9.5 MG/DL (8.5-10.1)
[2021-11-12 14:15] LABS: CREATININE SERUM 0.83 MG/DL (0.60-1.30)
== END ==
LOC: LAB 13:38
PROVIDERS: ATTEND Internal Medicine Cardiovascular Disease
DX: R94.39 Abnormal result of other cardiovascular function study (principal)
CPT/HCPCS: 36415; 80048; 85025; 85610

== ENCOUNTER 2021-11-15 08:04 | Day surgery (SDC) | payer MEDICARE ==
[~2021-11-15] VITALS: Ht 166 cm; Wt 121.0 kg
[2021-11-15] VITALS (9 sets, daily range): BP systolic 102–144; BP diastolic 57–81
[2021-11-15] MEDS ORDERED: LIDOCAINE 1% INJ 20 ML VIAL ONE (08:11)
[2021-11-15] MEDS ORDERED: NS IV 1000 ML 1,000 ML ONE (08:12)
[2021-11-15] MEDS ORDERED: HEParin (CATH LAB) 2,000 ML IV ONE (08:12)
[2021-11-15] MEDS ORDERED: NS IV 1000 ML 1,000 ML IV ONE (08:15)
[2021-11-15] MEDS ORDERED: CATHETER FLUSH 10 ML SYR IV PRN (08:15)
[2021-11-15] MEDS ORDERED: APIX5TAB PO (09:38)
[2021-11-15] MEDS ORDERED: FURO40TA4 PO (09:38)
[2021-11-15] MEDS ORDERED: POTA-51 PO (09:38)
[2021-11-15] MEDS ORDERED: VITAMIN B6 PO (09:38)
[2021-11-15] MEDS ORDERED: DILT360C36 PO (09:38)
[2021-11-15] MEDS ORDERED: ATOR20TA66 PO (09:38)
[2021-11-15] MEDS ORDERED: UBID200C16 PO (09:38)
--- NOTE | 2021-11-15 09:55 | Pre-Op Note & Conscious Sedat ---
Pre-Operative Progress Note H&P Reviewed The H&P was reviewed, patient examined and no changes noted. Date H&P Reviewed: Nov 15, 2021 Time H&P Reviewed: 09:55 Pre-Op Diagnosis: Abnormal nuclear stress test. Conscious Sedation Pre-Proced ASA Score 2 For ASA 3 and 4: Consider anesthesia and medical clearance. Also, for patients with a history of failed moderate sedation consider anesthesia. Airway Lungs Heart ASA score ASA 1: a normal healthy patient ASA 2: a patient with a mild systemic disease (mid diabetes, controlled hypertension, obesity ASA 3: a patient with a severe systemic disease that limits activity (angina, COPD, prior Myocardial infarction) ASA 4: a patient with an incapacitating disease that is a constant threat to life (CHF, renal failure) ASA 5: a moribund patient not expected to survive 24 hrs. (ruptured aneurysm) ASA 6: a declared brain- patient whose organs are being harvested. For emergent operations, add the letter E after the classification Mallampati Classification Grade 2 Sedation Plan Analgesia, Amnesia, Plan communicated to team members, Discussed options with patient/fam, Discussed risks with patient/fam The patient is an appropriate candidate to undergo the planned procedure, sedation, and anesthesia. The patient immediately re-assessed prior to indication. JYOTHI OSWALD JR, MD Nov 15, 2021 09:55
[2021-11-15] MEDS ORDERED: VERAPAMIL 5 MG/2 ML (CALAN) VIAL IV ONE (10:06)
[2021-11-15] MEDS ORDERED: NITRO DRIP 25000 MCG/D5W 250 ML IV ONE (10:06)
[2021-11-15] MEDS ORDERED: MIDAZOLAM 5 MG/5 ML (VERSED) VIAL ONE (10:06)
[2021-11-15] MEDS ORDERED: fentaNYL INJ 100 MCG/2 ML AMP ONE (10:06)
[2021-11-15] MEDS ORDERED: HEParin 1000 UNIT/ML (10ML VIAL) FOR BOLUS ONE (10:06)
[2021-11-15] MEDS ORDERED: NS IV 1000 ML 1,000 ML IV SCH (11:15)
[2021-11-15] MEDS ORDERED: PATIENT MAY USE OWN MEDS, ALL PO SCH (11:15)
--- NOTE | 2021-11-15 11:15 | Cardiac Cath Report ---
CARDIAC CATHETERIZATION DATE OF PROCEDURE: 11/15/2021 INDICATION: Abnormal nuclear stress test. HISTORY: The patient is a 71 year old female with no known history of coronary artery disease who had recent onset of paroxysmal atrial fibrillation. In order to risk stratify the patient and help determine the most appropriate antiarrhythmic drug, I had her undergo a nuclear stress test which showed a small, distal anterior and apical defect with a small amount of inducible ischemia. In light of the abnormal stress test, she is now referred for further evaluation with a cardiac catheterization. PROCEDURES PERFORMED: 1. Left heart catheterization with hemodynamic measurements. 2. Diagnostic [facility] [place] coronary angiography. PROCEDURE DESCRIPTION: After informed consent and in the fasting state, left heart catheterization was performed through the right radial artery utilizing a 6 [place] system by percutaneous approach. A 6 [place] FL 4 catheter was utilized to interrogate the left ventricle and a 5 [place] AL-1 catheter was utilized to interrogate the left and right coronary arteries. All catheters were exchanged over a guidewire. Following the procedure, a vascular band was applied to the radial artery access site and the sheath was removed with good hemostasis. RESULTS: HEMODYNAMICS: The aortic pressure was 121/70 mmHg. The left ventricular pressure was 124/0 mmHg with a left ventricular end-diastolic pressure of 10 mmHg. There was no significant pressure gradient upon pullback across the aortic valve. CORONARY ANGIOGRAPHY: Left main coronary artery: Free of significant disease. Left anterior descending coronary artery: Free of significant disease. Left circumflex coronary artery: Free of significant disease. Right coronary artery: Dominant and had a high and anterior takeoff but was free of significant disease. IMPRESSION: 1. Normal left heart pressures. 2. Angiographically normal-appearing coronary arteries in a right dominant system. 3. The patient is known to have normal left ventricular systolic function with a calculated ejection fraction of 69% by nuclear stress test performed on 11/01/2021. 4. The patient most likely had a false positive nuclear stress test result, possibly due to breast attenuation artifact. Certain portions of this document may have been dictated utilizing voice recognition technology. Inherent to this technology, typographical and grammatical errors may exist. As much as I am diligent to identify and correct these mistakes, some errors may remain in the document. JYOTHI OSWALD JR, MD Nov 15, 2021 11:15
[2021-11-15] MEDS ORDERED: FLEC100T PO (11:41)
[2021-11-15] MEDS ORDERED: FLECAINIDE 100 MG (TAMBOCOR) TAB PO SCH (21:00)
== END 2021-11-15 14:09 | disposition home or self-care (01) ==
LOC: CATH 08:04 → SDC 11:34 → CATH 14:09
PROVIDERS: ATTEND Internal Medicine Cardiovascular Disease
DX: I48.19 Other persistent atrial fibrillation (principal); I25.10 Atherosclerotic heart disease of native coronary artery without angina pectoris; I10 Essential (primary) hypertension; E03.9 Hypothyroidism, unspecified; M06.9 Rheumatoid arthritis, unspecified; E78.2 Mixed hyperlipidemia; E66.01 Morbid (severe) obesity due to excess calories; Z68.41 Body mass index [BMI] 40.0-44.9, adult; Z79.890 Hormone replacement therapy; Z79.01 Long term (current) use of anticoagulants; Z79.899 Other long term (current) drug therapy; Z87.891 Personal history of nicotine dependence
CPT/HCPCS: 93458; C1894

== ENCOUNTER 2022-07-24 12:08 | Outpatient (CLI) | payer MEDICARE ==
[~2022-07-24] VITALS: Ht 167.6 cm; Wt 116.2 kg
[~2022-07-24 12:08] MED LIST changes: +FLEC100T PO; +UBID200C16 PO; +VITAMIN B6 PO
== END 2022-07-24 14:53 | disposition home or self-care (01) ==
LOC: PREOP 12:08
PROVIDERS: ATTEND Surgery
DX: Z01.818 Encounter for other preprocedural examination (principal)

== ENCOUNTER → 2022-07-25 | Outpatient (CLI) | payer MEDICARE ==
--- NOTE | 2022-07-25 12:59 | Diagnostic Imaging Report ---
INDICATION: Routine screening. COMPARISON: 10/15/2019 and 07/04/2014. TECHNIQUE: 2D and 3D bilateral screening mammography was performed with CAD. FINDINGS: Both breasts are heterogeneously dense, limiting the sensitivity of mammography. There are scattered benign calcifications in both breasts. No mass or malignant-appearing microcalcifications are seen. The axillae are unremarkable. IMPRESSION: No mammographic features suspicious for malignancy are identified. ACR BI-RADS Category 2: Benign findings. Result letter will be mailed to the patient. Note: At least 10% of breast cancer is not imaged by mammography. Dictated by: Dictated on workstation # [id number]
== END ==
LOC: RAD 11:26
PROVIDERS: ATTEND Family Medicine
DX: Z12.31 Encounter for screening mammogram for malignant neoplasm of breast (principal)
CPT/HCPCS: 77063; 77067

== ENCOUNTER 2022-07-31 11:31 | Day surgery (SDC) | payer MEDICARE ==
[~2022-07-31] VITALS: Ht 167.6 cm; Wt 116.2 kg
[2022-07-31] MEDS ORDERED: LACTATED RINGERS 1,000 ML IV STA (11:33)
[2022-07-31] MEDS ORDERED: LIDOCAINE JELLY 2% 6 ML SYRINGE TOP ONE (11:40)
[2022-07-31 11:55] VITALS: BP 139/69
--- NOTE | 2022-07-31 12:34 | Progress Note-Pre Operative ---
Pre-Operative Progress Note Date of Available H&P: Jul 31, 2022 Date H&P Reviewed: Jul 31, 2022 Time H&P Reviewed: 12:00 History & Physical: No changes noted Pre-Operative Diagnosis: screening colo ALICE GILLIAM MD Jul 31, 2022 12:34
--- NOTE | 2022-07-31 12:35 | Discharge Inst-Surgical ---
D/C Lap Instructions-[place] Follow Up Activity as tolerated Avoid Alcohol, Caffeine, Spicy [place] and Acid foods. Drink 64 fluid oz or more of fluids per day. Symptoms to Report: Fever over 101 degree F, Nausea/Vomiting If any problems/questions: Contact your physician or go to Emergency Room ALICE GILLIAM MD Jul 31, 2022 12:35
[2022-07-31] MEDS ORDERED: ONDANSETRON 4 MG (ZOFRAN) ORAL DISSOLVE TAB PO PRN (12:45)
[2022-07-31] MEDS ORDERED: ONDANSETRON 4 MG/2 ML (SDV) Z0FRAN IVP PRN (12:45)
[2022-07-31] MEDS ORDERED: PROPOFOL INJECTION 50 ML IV ONE (13:43)
[2022-07-31] MEDS ORDERED: LACTATED RINGERS 1,000 ML IV ONE (13:56)
[2022-07-31] MEDS ORDERED: LIDOCAINE JELLY 2% 6 ML SYRINGE ONE (13:57)
[2022-07-31 14:17] VITALS: BP 111/71
--- NOTE | 2022-07-31 14:17 | Anesthesia-General Post-Op ---
MAC Patient Condition Mental Status/LOC: Same as Preop Cardiovascular: Satisfactory Nausea/Vomiting: Absent Respiratory: Satisfactory Pain: Controlled Complications: Absent Post Op Complications Complications None Follow Up Care/Instructions Patient Instructions None needed. Anesthesiology Discharge Order Discharge Order Patient is doing well, no complaints, stable vital signs, no apparent adverse anesthesia problems. No complications reported per nursing. MAYTE CHERY CRNA Jul 31, 2022 14:16
[2022-07-31 14:22] VITALS: BP 107/51
[2022-07-31 14:25] VITALS: BP 107/51
--- NOTE | 2022-07-31 14:31 | Progress Note-Post Operative ---
Post-Operative Progess Note Surgeon (s)/[place] (s) Surgeon ALICE GILLIAM MD [place]: none Pre-Operative Diagnosis screening colo Post-Operative Diagnosis mild chronic stage 2 ext and int hemorrhoids, small HP rectum(2mm) Procedure & Operative Findings Date of Procedure 07/31/22 Procedure Performed/Findings colonoscopy with bx. Anesthesia Type mac Estimated Blood Loss Estimated blood loss (mL): minimal Specimens/Packing Specimens Removed rectal polyp ALICE GILLIAM MD Jul 31, 2022 14:31
[2022-07-31 14:50] VITALS: BP 107/51
--- NOTE | 2022-07-31 23:42 | OPERATIVE REPORT ---
DATE OF SERVICE: 07/31/2022 ATTENDING PRIMARY CARE PHYSICIAN: Yuly Fuller MD PREOPERATIVE DIAGNOSIS: Screening colonoscopy with history of colon polyps. POSTOPERATIVE DIAGNOSES: Mild chronic stage II external and internal hemorrhoids, small hyperplastic polyp of the rectum, 2 mm in size. PROCEDURE: Colonoscopy with biopsy. SURGEON: Alice Gilliam MD. ANESTHESIA: Monitored anesthesia care. ESTIMATED BLOOD LOSS: Minimal. FINDINGS: Mild chronic stage II external and internal hemorrhoids, small hyperplastic polyp of the rectum, 2 mm in size. DISPOSITION: The patient tolerated the procedure well. INDICATIONS: The patient is a 72-year-old female referred over to us for screening colonoscopy. Her last one was approximately 5 years ago and she does remember to have several polyps; which were benign; however, cannot recall what type of polyps they were. She states that she is otherwise doing well, does not report any major issues with diarrhea nor constipation as well as no red blood per rectum nor any dark tarry stools. She also does not report any family history of colon cancer. DESCRIPTION OF PROCEDURE: The patient was brought to the endoscopy suite, laid in the left lateral decubitus position. After adequate IV pain and sedative medications and monitored anesthesia care, a digital rectal examination was performed. Mild chronic stage II external and internal hemorrhoids identified, not actively edematous nor inflamed and no bleeding. Normal sphincter tone was felt and there were no palpable masses. The endoscope was then intubated to the anus and rectum gently insufflated. The endoscope was then advanced through the valves of [place] of the rectum with no polyps or any neoplasms identified. Through the sigmoid colon, no diverticulosis identified. The endoscope was then advanced through the remainder of the descending, transverse and ascending colon. The endoscope was then slowly withdrawn while suctioning residual air, a small hyperplastic polyp of the rectum was identified and this was biopsied and destroyed using forceps and electrocautery. The patient tolerated the procedure well. We will recommend the necessary lifestyle and dietary accommodation including a high-fiber diet with a fiber supplement, which should equal or exceed 25 grams daily as well as significant amounts of water to promote soft consistency stools on a daily basis. If diagnosis of hyperplastic polyp is confirmed by pathology, she does not need another colonoscopy for another 10 years. Job ID: [id number] DocumentID: [id number] Dictated Date: 07/31/2022 14:17:40 Photo Retoucher Date: 07/31/2022 23:41:07 Dictated By: ALICE GILLIAM MD
== END 2022-07-31 14:50 | disposition home or self-care (01) ==
LOC: ENDO 11:31
PROVIDERS: ATTEND Surgery
DX: Z12.11 Encounter for screening for malignant neoplasm of colon (principal); K62.1 Rectal polyp; K64.1 Second degree hemorrhoids; K64.4 Residual hemorrhoidal skin tags; Z87.891 Personal history of nicotine dependence; K21.9 Gastro-esophageal reflux disease without esophagitis; Z79.899 Other long term (current) drug therapy; G47.33 Obstructive sleep apnea (adult) (pediatric); E66.01 Morbid (severe) obesity due to excess calories; Z68.41 Body mass index [BMI] 40.0-44.9, adult

== ENCOUNTER 2023-04-07 18:36 | Emergency (ER) | payer MEDICARE ==
[~2023-04-07 18:36] MED LIST changes: -LOSA100T57 PO; +LOSA100T58 PO; +POTA-330 PO; -POTA-51 PO
--- NOTE | 2023-04-07 18:53 | ED Head Injury ---
General Chief Complaint: Trauma-Non Activation Stated Complaint: FALL/POSS HEAD INJURY Nursing Triage Note: PT AMB TO RM 10 WITH FAMILY WITH C/O HEAD INJURY AFTER HITTING HEAD ON AN IRON SWINGSET AND FALLING BACKWARDS. PT REPORTS LOC. PT REPORTS NAUSEA AND RINGING IN HER EARS ALSO. PT ON THINNERS Source: patient Exam Limitations: no limitations (PEE GABRIEL) History of Present Illness Date Seen by Provider: Apr 07, 2023 Time Seen by Provider: 18:51 Initial Comments Patient is a 73-year-old female who presents ED with family for head injury. This occurred around 515. Patient was blowing bubbles with her granddaughters on a swing set when she ran into the metal frame of the swing set causing her to fall backwards hitting the back of her head on the ground. Potential loss of consciousness for a few seconds. Patient woke up set up and walked to the house. She states since then she has been feeling tired dizzy lightheaded. No specific head pain. She does take Eliquis. She denies of any specific Neck pain but states she feels tired and wants to sleep. Nausea without vomiting. Denies of any unilateral muscle weakness or sensory changes. She does report some mild ear ringing. Denies take anything for pain. According to family at bedside this was witnessed. Patient denies chest pain, neck pain, middle lower back pain, abdominal pain vomiting, diarrhea, headache (PEE GABRIEL) Allergies and Home Medications Allergies Coded Allergies: No Known Drug Allergies (Unverified , 11/18/17) Patient Home Medication List Home Medication List Reviewed: Yes (PEE GABRIEL) ALPRAZolam (ALPRAZolam) 0.25 Mg Tablet, 0.25 MG PO DAILY, (Reported) Entered as Reported by: MELY COE on 09/19/21 1234 Apixaban (Eliquis) 5 Mg Tablet, 5 MG PO BID, (Reported) Entered as Reported by: RICHMOND MCDERMOTT on 11/15/21 0938 Atorvastatin Calcium (Atorvastatin Calcium) 20 Mg Tablet, 20 MG PO DAILY, (Reported) Entered as Reported by: RICHMOND MCDERMOTT on 11/15/21 0938 Celecoxib (Celecoxib) 200 Mg Capsule, 200 MG PO BID, (Reported) Entered as Reported by: MELY COE on 09/19/21 1234 Diltiazem HCl (Diltiazem 24Hr ER) 360 Mg Cap.er.24h, 360 MG PO DAILY, (Reported) Entered as Reported by: RICHMOND MCDERMOTT on 11/15/21937 Flecainide Acetate (Flecainide Acetate) 100 Mg Tablet, 100 MG PO BID Prescribed by: JYOTHI OSWALD JR, MD on 11/15/21 1141 Furosemide (Furosemide) 40 Mg Tablet, 40 MG PO DAILY, (Reported) Entered as Reported by: RICHMOND MCDERMOTT on 11/15/21937 Levothyroxine Sodium (Levothyroxine Sodium) 150 Mcg Tablet, 150 MCG PO DAILY, (Reported) Entered as Reported by: BERTO ESCALERA on 11/18/17 0937 Mv-Mn/Folic Acid/Vit K/Wany730 (Alive Once Daily Women 50 Plus) 1 Each Tablet, 2 EACH PO DAILY, (Reported) Entered as Reported by: MELY COE on 09/19/21 1234 Pantoprazole Sodium (Pantoprazole Sodium) 40 Mg Tablet.dr, 40 MG PO DAILY, (Reported) Entered as Reported by: DEANA STINSON on 07/21/18 1247 Potassium Chloride (Potassium Chloride) 20 Meq Tablet.er, 20 MEQ PO DAILY, (Reported) Entered as Reported by: RICHMOND MCDERMOTT on 11/15/21937 Sertraline HCl (Sertraline HCl) 100 Mg Tablet, 150 MG PO DAILY, (Reported) Entered as Reported by: MELY COE on 09/19/21 1234 Ubidecarenone (Co Q-10) 200 Mg Capsule, 200 MG PO DAILY, (Reported) Entered as Reported by: RICHMOND MCDERMOTT on 11/15/21 09 [Vitamin B6] , 100 MG PO DAILY, (Reported) Entered as Reported by: RICHMOND MCDERMOTT on 11/15/21937 Review of Systems Review of Systems Constitutional: No chills, No diaphoresis; dizziness; No malaise; weakness Eyes: Denies Drainage, Denies Decreased Acuity Ears, Nose, Mouth, Throat: denies ear pain, denies ear discharge Respiratory: No cough, No dyspnea on exertion Cardiovascular: No chest pain, No edema Gastrointestinal: No abdominal pain, No diarrhea, No nausea, No vomiting Genitourinary: No decreased output, No discharge Musculoskeletal: No back pain, No joint swelling, No muscle pain, No muscle stiffness Skin: No change in color, No change in hair/nails Psychiatric/Neurological: Denies Headache, Denies Numbness, Denies Weakness (PEE GABRIEL) All Other Systems Reviewed Negative Unless Noted: Yes (PEE GABRIEL) Past Virgqvh-Edqmec-Adwdmy Hx Immunizations Up To Date Tetanus Booster (TDap): Unknown First/Initial COVID19 Vaccinat: Oct COVID19 Vaccination Rohan: November COVID19 Vaccination Date: MAY (PEE GABRIEL) Seasonal Allergies Seasonal Allergies: No (PEE GABRIEL) Past Medical History Surgery/Hospitalization HX: afib, htn, high cholesterol, gerd, anxiety, depression Surgeries: Yes (FISTULA REPAIR) Abdominal, Orthopedic Respiratory: Yes Sleep Apnea Currently Using CPAP: Yes Cardiac: Yes Atrial Fibrillation, High Cholesterol Neurological: No Reproductive Disorders: No Sexually Transmitted Disease: No HIV/AIDS: No Genitourinary: No Gastrointestinal: Yes (Esophageal stricture) Gastroesophageal Reflux, Diverticulosis, Hepatitis, Polyps Musculoskeletal: No Endocrine: Yes Hypothyroidsim HEENT: No Loss of Vision: Bilateral Hearing Impairment: Denies Cancer: No Psychosocial: Yes Anxiety, Depression Integumentary: No Blood Disorders: No Adverse Reaction/Blood Tranf: No (N/A) (PEE GABRIEL) Family Medical History Heart Disease, Diabetes, Hypertension (PEE GABRIEL) Physical Exam Vital Signs Vital Signs - First Documented 04/07/23 18:42 Temp 36.7 Pulse 57 Resp 18 B/P (MAP) 185/97 (126) Pulse Ox 97 O2 Delivery Room Air (CARLOS RANKIN MD) Vital Signs Capillary Refill : (PEE GABRIEL) Height, Weight, BMI Height: 5'5.00" Weight: 250lbs. 0.0oz. 113.778324we; 41.36 BMI Method:Stated General Appearance: WD/WN, no apparent distress HEENT: PERRL/EOMI, normal ENT inspection, TMs normal, pharynx normal Neck: non-tender, full range of motion, supple Cardiovascular: regular rate, rhythm, no edema, no gallop, no JVD Respiratory: chest non-tender, lungs clear, normal breath sounds, no respiratory distress, no accessory muscle use Gastrointestinal: normal bowel sounds, non tender, soft, no organomegaly Back: normal inspection, no CVA tenderness, no vertebral tenderness Extremities: normal range of motion, non-tender Crainal Nerves: normal hearing, normal speech, PERRL Motor/Sensory: no motor deficit, no sensory deficit, no pronator drift Skin: normal color, warm/dry (PEE GABRIEL) [place] Coma Score Best Eye Response: (4) Open Spontaneously Best Verbal Response: (5) Oriented Best Motor Response: (6) Obeys Commands [place] Total: 15 (PEE GABRIEL) Progress/Results/Core Measures Results/Orders Blood Pressure Mean: 126 Departure Communication (PCP) Reviewed previous ER visits, H&P, lab testing. Patient with a mechanical fall hitting her head with potential loss of conscious. This occurred around 515. Patient ran into a metal frame of a swing set. She fell backwards hitting the back part of her head. Patient felt dizzy lightheaded and nausea post fall. She states she feels tired and wants to sleep. On arrival alert and orient x4. GCS 15. No evidence of basilar skull fracture. No specific cervical midline tenderness. She has no focal neural deficits. Due to the mechanism of injury, potential loss of consciousness and on blood thinner CT scan of the head and cervical neck was ordered. Differential diagnosis of concussion, intracranial bleed, cranium fraction, cervical muscles sprain. CT scan of the head and cervical neck was negative for acute abnormality. She refused anything for pain. She has no other current complaints. Discussed my concerns. Concern for potential concussion. Recommend rest at home. Avoid strenuous activities, playing games until symptoms improved. Continue with Tylenol at home for headache as needed. If any worsening symptoms such as severe head pain, projectile vomiting, change in mental status to return back to ED. Patient agrees with plan of action. (PEE GABRIEL) Impression Primary Impression: Head injury Additional Impression: Concussion Disposition: 01 HOME, SELF-CARE Condition: Stable Departure-Patient Inst. Decision time for Depature: 19:36 (PEE GABRIEL) Referrals: CAROLEE SAXENA MD (PCP/Family) Primary Care Physician Patient Instructions: Concussion, Adult (DC) Add. Discharge Instructions: Recommend rest for the next 2 or 3 days. Avoid any strenuous activities, bright lights, watching TV or games for long period of time. Follow-up your PCP early next week for reevaluation. If any worsening symptoms such as severe head pain, vomiting, change in mental status to return back to ED. All discharge instructions reviewed with patient and/or family. Voiced understanding. ATTENDING PHYSICIAN NOTE: I was physically present as attending physician in the emergency department during the care of this patient, but I was not directly involved in the decision making or delivery of care for this patient. (CARLOS RANKIN MD) PEE GABRIEL Apr 07, 2023 18:53 CARLOS RANKIN MD Apr 09, 2023 04:42
--- NOTE | 2023-04-07 19:23 | Diagnostic Imaging Report ---
INDICATION: Fall with head and neck pain. TECHNIQUE: Multiple contiguous axial images were obtained through the brain and cervical spine without the use of intravenous contrast. Sagittal and coronal reformations through the cervical spine were then performed. Auto Exposure Controls were utilized during the CT exam to meet ALARA standards for radiation dose reduction. COMPARISON: Comparison made to 10/17/2021. CT HEAD FINDINGS: There are mild diffuse atrophic changes. There is no subdural or epidural collection. There is no acute intracranial hemorrhage. There is no mass effect or midline shift. The ventricles are normal in size and position. There is no acute territorial ischemia. Calvarial windows show no acute fracture. CT CERVICAL SPINE FINDINGS: There was no evidence of cervical spine fracture. There was no subluxation or malalignment. There is diffuse facet degenerative change throughout all levels. There is disc space narrowing and osteophyte formation from C4 through C7. There is no acute bony abnormality. IMPRESSION: CT head shows chronic changes as above with no acute intracranial abnormality or calvarial fracture. CT cervical spine shows multilevel degenerative changes with no acute fracture or subluxation. Dictated by: Dictated on workstation # [id number]
[2023-04-07 19:44] VITALS: BP 146/82
== END 2023-04-07 19:44 | disposition home or self-care (01) ==
LOC: EDUNIT# 18:36 → ER 18:37
DX: S06.0X0A Concussion without loss of consciousness, initial encounter (principal); G47.30 Sleep apnea, unspecified; Z79.01 Long term (current) use of anticoagulants; Z99.89 Dependence on other enabling machines and devices; W18.30XA Fall on same level, unspecified, initial encounter; W22.8XXA Striking against or struck by other objects, initial encounter; Y93.02 Activity, running
CPT/HCPCS: 70450; 72125

== ENCOUNTER → 2023-05-15 | Outpatient (CLI) | payer MEDICARE ==
--- NOTE | 2023-05-15 14:36 | Diagnostic Imaging Report ---
PROCEDURE: CT sinuses without contrast TECHNIQUE: Multiple contiguous axial images were obtained through the sinuses without the use of intravenous contrast. Coronal and sagittal reformations were then performed. Auto Exposure Controls were utilized during the CT exam to meet ALARA standards for radiation dose reduction. INDICATION: Anosmia with nasal drainage. COMPARISONS: None. FINDINGS: Axial images and sagittal and coronal reconstructions of the paranasal sinuses show well-pneumatized maxillary sinuses. Ostiomeatal complexes are patent. There is slight nasal septal deviation to the left. The ethmoid air cells and sphenoid sinuses are well pneumatized. The frontal sinuses are hypoplastic but appear well pneumatized. Orbits including both globes, retro-orbital extraconal, conal, and intraconal spaces are normal. Zygomatic arches and pterygoid plates are symmetric. Mastoid air cells appear well pneumatized. IMPRESSION: 1. Hypoplastic frontal sinuses, a normal variation. 2. The paranasal sinuses and mastoid air cells are well pneumatized. The ostiomeatal complexes are patent, and the nasal septum is midline. Dictated by: Dictated on workstation # [id number]
== END ==
LOC: RAD 11:18
PROVIDERS: ATTEND Otolaryngology Otolaryngology/Facial Plastic Surgery
DX: J34.89 Other specified disorders of nose and nasal sinuses (principal); R43.0 Anosmia
CPT/HCPCS: 70486